=== PATIENT | female | born 1995 | race Caucasian/White ===

== ENCOUNTER → 2017-06-09 | Outpatient (CLI) | payer BC, OTHER ==
[2017-06-09 15:03] LABS: URINE APPEARANCE TURBID (CLEAR); URINE BILIRUBIN NEG (NEG); URINE COLOR DK YELLOW; URINE EPITHELIAL CELL AUTO >30 /lpf (0-5); URINE NITRITE POS (NEG); URINE PH 7.5 (4.5-7.5); URINE SPECIFIC GRAVITY 1.029 (1.000-1.030); UROBILINOGEN NEG (NEG)
[2017-06-09 15:18] LABS: MANUAL MICROSCOPIC REQUIRED? NO; REVIEW REQ? YES; SULFASALICYLIC ACID NEG (NEG)
== END | disposition home or self-care (01) ==
LOC: C.LABSPEC 13:06
PROVIDERS: ATTEND Obstetrics & Gynecology
DX: Z34.01 Encounter for supervision of normal first pregnancy, first trimester (principal)

== ENCOUNTER → 2017-06-15 | Outpatient (CLI) | payer BC, OTHER ==
[2017-06-18 01:31] LABS: CHLAMYDIA TRACH RNA*** NOT DETECTED (NOT DETECTED); GC (NEIS GONORRHOEAE)RNA** NOT DETECTED (NOT DETECTED)
== END | disposition home or self-care (01) ==
LOC: C.LABSPEC 14:23
PROVIDERS: ATTEND Obstetrics & Gynecology
DX: Z34.01 Encounter for supervision of normal first pregnancy, first trimester (principal)

== ENCOUNTER → 2017-06-16 | Outpatient (CLI) | payer BC, OTHER ==
[2017-06-16 16:43] LABS: BASO % 0.3 %; BASO ABS # 0.03 K/uL (0-0.2); COMPLETE YES; EOS % 1.8 %; HEMATOCRIT 36.5 % (37-47); IG% 0.5 %; LYMPH ABS # 2.52 K/uL (1.2-3.4); MEAN CELL VOLUME 87.3 fL (80-100); MEAN CORPUSCULAR HEMOGLOBIN 30.4 pg (25-34); MEAN CORPUSCULAR HGB CONC 34.8 g/dl (32-36); MEAN PLATELET VOLUME 10.2 fL (7.4-10.4); MONO % 8.3 %; NEUT % 68.1 %; PLATELET COUNT 246 K/uL (130-400); RED BLOOD COUNT 4.18 M/uL (4.2-5.4); WHITE BLOOD COUNT 11.98 K/uL (4.8-10.8)
== END | disposition home or self-care (01) ==
LOC: C.LAB1850 15:18
PROVIDERS: ATTEND Obstetrics & Gynecology
DX: Z34.01 Encounter for supervision of normal first pregnancy, first trimester (principal)

== ENCOUNTER → 2017-07-28 | Outpatient (CLI) | payer BC, OTHER ==
[2017-07-28 16:58] LABS: GTGD 50 Grams
== END | disposition home or self-care (01) ==
LOC: C.LAB1850 14:52
PROVIDERS: ATTEND Obstetrics & Gynecology
DX: O23.40 Unspecified infection of urinary tract in pregnancy, unspecified trimester (principal); Z34.02 Encounter for supervision of normal first pregnancy, second trimester

== ENCOUNTER → 2017-10-20 | Outpatient (CLI) | payer BC, OTHER ==
[2017-10-20 18:32] LABS: URINE APPEARANCE CLOUDY (CLEAR); URINE BILIRUBIN NEG (NEG); URINE COLOR YELLOW; URINE EPITHELIAL CELL AUTO >30 /lpf (0-5); URINE NITRITE NEG (NEG); URINE PH 6.5 (4.5-7.5); URINE SPECIFIC GRAVITY 1.023 (1.000-1.030); UROBILINOGEN NEG (NEG)
[2017-10-20 18:34] LABS: MANUAL MICROSCOPIC REQUIRED? NO; REVIEW REQ? NO
[2017-10-20 20:07] LABS: GTGD 50 Grams
== END | disposition home or self-care (01) ==
LOC: C.LAB1850 15:40
PROVIDERS: ATTEND Obstetrics & Gynecology
DX: Z34.03 Encounter for supervision of normal first pregnancy, third trimester (principal)

== ENCOUNTER → 2017-11-03 | Outpatient (CLI) | payer BC, OTHER ==
[2017-11-03 16:24] LABS: HEMATOCRIT 32.3 % (37-47)
== END | disposition home or self-care (01) ==
LOC: C.LAB1850 15:21
PROVIDERS: ATTEND Obstetrics & Gynecology
DX: Z34.03 Encounter for supervision of normal first pregnancy, third trimester (principal)

== ENCOUNTER → 2017-12-15 | Outpatient (CLI) | payer BC | END | disposition home or self-care (01) | LOC: C.LABSPEC 17:55 | PROVIDERS: ATTEND Obstetrics & Gynecology | DX: Z34.03 Encounter for supervision of normal first pregnancy, third trimester (principal) ==

== ENCOUNTER 2018-01-12 03:34 | Inpatient (IN) | payer BC, OTHER ==
[~2018-01-12] VITALS: Ht 162.6 cm; Wt 117.3 kg
[2018-01-19] MEDS ORDERED: LACTATED RINGER'S 1000ML 1,000 ML IV PRN (07:50)
[2018-01-19] MEDS ORDERED: LACTATED RINGER'S 1000ML 500 ML IV PRN ×2 (07:55→12:44)
[2018-01-19] MEDS ORDERED: OXYTOCIN 30 UNITS/500ML NSS IV PRN ×2 (08:00→17:00)
[2018-01-19] MEDS ORDERED: RANI150T85 PO (08:13)
[2018-01-19] MEDS ORDERED: PRENTAB26 PO (08:13)
[2018-01-19 08:14] LABS: HEMATOCRIT 31.2 % (37-47); HEMOGLOBIN 10.7 g/dL (12.0-16.0); MEAN CELL VOLUME 87.2 fL (80-100); MEAN CORPUSCULAR HEMOGLOBIN 29.9 pg (25-34); MEAN CORPUSCULAR HGB CONC 34.3 g/dl (32-36); MEAN PLATELET VOLUME 9.6 fL (7.4-10.4); PLATELET COUNT 199 K/uL (130-400); RED CELL DISTRIBUTION WIDTH CV 13.4 % (11.5-14.5); WHITE BLOOD COUNT 12.48 K/uL (4.8-10.8)
[2018-01-19] MEDS: LACTATED RINGER'S 1000ML 1,000 ML IV SCH ×2 (08:24→12:30)
[2018-01-19] MEDS ORDERED: ACETAMINOPHEN 325 MG TAB PO PRN ×2 (09:00→17:00)
[2018-01-19] MEDS: RANITIDINE HCL 150 MG TAB PO SCH ×2 (09:46→21:09)
[2018-01-19 09:48] VITALS: Ht 162.6 cm; Wt 117.3 kg
[2018-01-19] MEDS ORDERED: BUPIVACAINE 0.25% 30 ML VIAL ONE (11:57)
[2018-01-19] MEDS ORDERED: EpHEDrine SULFATE INJ 50 MG/ML AMP ONE (11:58)
[2018-01-19] MEDS ORDERED: FENTANYL 2MCG/ML ROPIV 1.25MG/ML 100ML BAG EPI ONE (11:58)
[2018-01-19] MEDS ORDERED: FENTANYL CITRATE INJ 50 MCG/1 ML 2 ML VIAL ONE (11:58)
[2018-01-19] MEDS ORDERED: NALOXONE HCL INJ 0.4 MG/1 ML VIAL/CARP IV PRN (12:45)
[2018-01-19] MEDS ORDERED: FENTANYL 2MCG/ML ROPIV 1.25MG/ML 100ML BAG EPI PRN (12:45)
[2018-01-19] MEDS ORDERED: EpHEDrine SULFATE INJ 50 MG/ML AMP IV PRN (12:45)
[2018-01-19] MEDS ORDERED: BENZOCAINE 20% AER SPR 82.5 GM CAN EXT PRN (17:00)
[2018-01-19] MEDS ORDERED: LANOLIN OINT EXT PRN (17:00)
[2018-01-19] MEDS ORDERED: DIPHTHERIA/TETANUS/PERTUSSIS 0.5 ML SYR/VIAL IM. ONE (17:00)
[2018-01-19] MEDS ORDERED: HYDROCORTISONE ACETATE 25 MG SUPP PR PRN (17:00)
[2018-01-19] MEDS ORDERED: OXYCODONE/ACETAMINOPHEN 5-325 TAB PO PRN (17:00)
[2018-01-19] MEDS ORDERED: ACETAMINOPHEN/CODEINE 300/30MG TAB PO PRN ×2 (17:00)
[2018-01-19] MEDS ORDERED: SUPERCREAM 0.870 % 15GM JAR EXT PRN (17:00)
--- NOTE | 2018-01-19 17:18 | DELIVERY SUMMARY ---
DATE OF OPERATION: 01/19/2018 Colby arrived for induction at 41 weeks. Pitocin and epidural and AROM. I got her relatively quickly to fully dilated. Her heart rate did go through a brief period of category 2, but resolved into category 1. She delivered after only pushing through several contractions delivering a baby in right occiput anterior position. Fluid was clear. Mouth and then nares were suctioned. Gentle traction used. No excessive force. Live vigorous female infant. There was a loose body cord x2. Cord clamped and cut. Cord gases obtained. Cord blood obtained. Placenta removed. IV Pitocin started. She had a first degree tear and bilateral labial tears which were repaired with 3-0 Vicryl. Sponge and instrument counts were correct. Estimated blood loss 300 mL. tionat I attest to the content of the Intraoperative Record and any orders documented therein. Any exception s are noted below.
--- NOTE | 2018-01-19 18:19 | Anesthesia Procedure Note ---
Anesthesia Epidural Removal Nt Date & Time Jan 19, 2018 at 18:19 Vital Signs Pain Intensity: 5.0 Notes Mental Status: alert / awake / arousable, participated in evaluation Nausea / Vomiting: adequately controlled Pain: adequately controlled Airway Patency, RR, SpO2: stable & adequate BP & HR: stable & adequate Hydration State: stable & adequate Neuraxial Anesthesia: was administered, sensory block is resolving Anesthetic Complications: no major complications apparent, pt satisfied with anesthetic care Epidural: removed without complications, with tip intact
[2018-01-19] MEDS: IBUPROFEN 600 MG TAB PO PRN (20:10)
[2018-01-19 20:15] VITALS: BP 100/67; PULSE 106; TEMP 37.3; O2SAT 99
[2018-01-19] MEDS: DOCUSATE SODIUM 100 MG CAP PO SCH (21:09)
[2018-01-20] MEDS: IBUPROFEN 600 MG TAB PO PRN ×6 (00:08→23:49)
[2018-01-20 03:45] VITALS: BP 80/54; PULSE 75; TEMP 36.9; O2SAT 100
[2018-01-20] MEDS: RANITIDINE HCL 150 MG TAB PO SCH ×3 (03:59→19:57)
--- NOTE | 2018-01-20 05:52 | Progress Note ---
Subjective Jan 20, 2018. Subjective conversation w/ patient, physical exam, lab review Ambulation: ambulating normally Voiding: no voiding problems Diet Tolerance: Regular Diet Lochia: Small Objective Vital Signs Date Time Temp Pulse Resp B/P (MAP) Pulse Ox O2 Delivery O2 Flow Rate FiO2 01/20/18 03:45 36.9 75 18 80/54 (63) 100 Room Air 01/19/18 20:15 37.3 106 20 100/67 (78) 99 Room Air 01/19/18 20:15 99 Room Air Physical Exam General Appearance: WELL-APPEARING Abdomen: non tender Extremities: no calf tenderness Laboratory Results Last 24 Hours Test 01/19/18 08:05 01/20/18 04:44 White Blood Count 12.48 K/uL Red Blood Count 3.58 M/uL Hemoglobin 10.7 g/dL Hematocrit 31.2 % Mean Corpuscular Volume 87.2 fL Mean Corpuscular Hemoglobin 29.9 pg Mean Corpuscular Hemoglobin Concent 34.3 g/dl RDW Standard Deviation 43.0 fL RDW Coefficient of Variation 13.4 % Platelet Count 199 K/uL Mean Platelet Volume 9.6 fL Assessment and Plan Problem List Medical Problems: (1) Abscess packing removal Status: Acute (2) Pilonidal cyst with abscess Status: Acute Post- Day#: 1 Continue Routine Care: day 1 she is doing well no concerns plan on continuing current care
[2018-01-20 06:10] LABS: HEMATOCRIT 24.9 % (37-47); HEMOGLOBIN 8.4 g/dL (12.0-16.0)
[2018-01-20 07:45] VITALS: BP 102/69; PULSE 81; TEMP 36.8; O2SAT 99
[2018-01-20] MEDS: DOCUSATE SODIUM 100 MG CAP PO SCH ×2 (08:43→19:57)
[2018-01-20] MEDS: PRENATAL VITAMIN TAB PO SCH (08:44)
[2018-01-20 11:20] VITALS: BP 103/69; PULSE 72; TEMP 36.9; O2SAT 98
[2018-01-20 15:34] VITALS: BP 110/74; PULSE 90; TEMP 36.8; O2SAT 99
--- NOTE | 2018-01-20 16:11 | Discharge Instructions ---
Discharge Instructions Date of Service Jan 20, 2018. Admission Reason for Admission: Induction Discharge Discharge Diagnosis / Problem: s/p Discharge Goals Goal(s): Routine recovery after delivery Medications Continue Dispensed Medications: supercream, dermaplast, tucks, lansinoh Activity Recommendations Activity Limitations: per Instructions/Follow-up section . Instructions / Follow-Up Instructions / Follow-Up ACTIVITY RECOMMENDATIONS: * Gradual return to full activity over the next 2-3 weeks. * No lifting - nothing heavier than baby over the next 2-3 weeks. * Do not engage in vigorous exercise, sexual activity or sports until cleared by your physician. * Do not drive or operate any motorized equipment until cleared by your physician. * You may shower/bathe daily. MEDICATIONS: For discomfort or pain, you may use Acetaminophen (Tylenol), Ibuprofen (Advil), or Naproxen (Aleve) following the package directions. For constipation you may use Colace following the package directions. BREAST CARE: If you are not breast feeding: * Wear a supportive bra 24 hours a day for one to two weeks. * Avoid stimulating your breasts and nipples as much as possible during the first few weeks after delivery. * When taking a shower, have the warm water hit your back, not breasts. * When your breasts feel full, apply ice packs. Usually three to four times a day helps ease the discomfort. * Take a mild pain medication (Tylenol / Motrin) when you are uncomfortable. If breast feeding: * Use breast milk to lubricate nipples. Lansinoh cream may be used for sore nipples. You do not need to remove cream prior to breast feeding. If using a different brand of cream, check the label for directions regarding removal of cream prior to nursing. * Wear a supportive bra. * If having problems with breasts or breast feeding, call a design consultant or your health care provider. EPISIOTOMY CARE: After delivery, if you have an episiotomy (stitches), the following steps will ease discomfort and aid healing. * For the first 24 hours after delivery, place ice packs next to your episiotomy to help reduce swelling. * After the first 24 hour-period, sitz baths, either portable or in the tub, are suggested. A shower with a shower arm sprayed over the episiotomy may be comforting. * Bria care should be done after each voiding and bowel movement. Squirt warm water from a plastic bottle over the perineum (region of the body between the anus and urinary opening) and pat dry. * Use Dermoplast to ease discomfort. Shake container. [place] directly over the episiotomy. Place a Tucks on a clean sanitary pad next to your episiotomy. SPECIAL CARE INSTRUCTIONS: When you are discharged from the hospital, it is important for you to follow the instructions listed below: * During the first week at home, you should be able to care for yourself and your baby. In addition, the usual light household activities are encouraged. * Limit your activities to the way you feel. Do not try to clean the house or move furniture. Be sensible. * If you actively engage in sports and have done so up until the time of your delivery, you may resume these activities as soon as you feel able. This may take up to one month or even longer. Use good judgment. * Continue to take your vitamins for at least six weeks after the of your baby. * Your diet need not be limited unless you were on a special diet before your delivery. Breast-feeding mothers need around 2500 calories per day and at least 64-80 ounces of fluid per day (8 to 10 glasses). * You should eat foods from the four major food groups. Crash diets or fad diets are to be avoided. Eating lean meats, fresh fruits and vegetables, low-fat dairy products, high fiber foods and a regular exercise program, will help you get back to your pre- weight without putting your health at risk. * Constipation is sometimes a problem after delivery. Take a mild laxative as needed. If breast feeding, Milk of Magnesia is acceptable to use. You may use a suppository or Fleets enema if no episiotomy. * A daily shower or tub bath is suggested. Be sure to thoroughly and gently dry the perineum. * A bloody vaginal discharge will usually continue until around four weeks post . A small amount of bleeding may continue for as long as six weeks. Vaginal discharge changes from the bright red bleeding after delivery to pink then brownish and finally yellowish-pink before becoming white and disappearing. * Bleeding may increase with activity. Your first period may come in 4-8 weeks. If you are breast feeding, your period may be delayed even longer. * [place] (sex) can begin whenever both you and your partner feel comfortable and do not have any form of genital infection. It is recommended that you wait at least six weeks for internal and external healing to occur. If you have questions, please talk to your health care practitioner. A condom should be used to prevent infection and . * Foreplay, gentle intercourse and lubrication is very important the first several times to prevent pain. A water-based lubricant such as K-Y jelly or Astroglide may be used. * If you have RH negative blood and your baby is RH positive, you will receive RHOGAM by injection prior to discharge. The nurse will give you a card to keep with you that has the date and place that you received RHOGAM after delivery. * During your care, you had a Rubella screen done to check for the presence of rubella antibodies in your blood. If your test was negative, you will receive a Rubella vaccine prior to discharge. This vaccine may cause a fever, soreness at the injection site and flu-like symptoms. If these symptoms persist, notify your health care practitioner. is not advised for one month after a Rubella vaccine. * Verbalizes understanding of car seat law as reviewed with patient nursing. * Car Seat hand-out given and reviewed with patient by nursing. * Shaken baby information reviewed with patient by nursing. Call you doctor if: * Heavy bleeding (saturating several pads an hour) or passing clots the size of your fist. * A fever >101 degrees F (38.3 degrees C) on two occasions four hours apart and /or chills. * Unusual pain in the pelvic or vaginal areas. * "Baby Blues" lasting longer than two weeks. If you have any questions or concerns, call your health care practitioner at . FOLLOW UP VISIT: * Please call the office at to schedule a 6 week examination. It is important you keep this appointment. It is important for you to make arrangements for either yearly or twice yearly check-ups thereafter. Current Hospital Diet Patient's current hospital diet: Regular OB Diet Discharge Diet Recommended Diet: Regular OB Diet Pending Studies Studies pending at discharge: no Medical Emergencies . Who to Call and When: Medical Emergencies: If at any time you feel your situation is an emergency, please call [phone] immediately. . Non-Emergent Contact Non-Emergency issues call your: Circulating Process Inspector . . "Provider Documentation" section prepared by Nieves Shearer. .
[2018-01-20] MEDS ORDERED: BISACODYL 5 MG TABEC PO SCH (20:00)
[2018-01-20 23:35] VITALS: BP 103/69; PULSE 96; TEMP 36.5; O2SAT 98
[2018-01-21] MEDS: IBUPROFEN 600 MG TAB PO PRN (06:26)
[2018-01-21] MEDS ORDERED: BISACODYL 10 MG SUPP PR PRN (07:00)
[2018-01-21 07:40] VITALS: BP 104/70; PULSE 74; TEMP 36.7; O2SAT 99
--- NOTE | 2018-01-21 07:59 | Progress Note ---
Subjective Jan 21, 2018. Subjective conversation w/ patient, physical exam Ambulation: ambulating normally Voiding: no voiding problems Passing Gas: Yes Diet Tolerance: Regular Diet Lochia: Small Feeding Type: Bottle Feeding Pain: No pain reported Comment: Pt. seen and assessed at bedside; no acute events overnight Review of Systems Constitutional: No fever, No chills Respiratory: No cough, No shortness of breath Cardiac: + edema, No chest pain Breast: No problem reported Abdomen: No pain, No nausea, No vomiting Female : No dysuria No headaches or calf tenderness reported Objective Vital Signs Date Time Temp Pulse Resp B/P (MAP) Pulse Ox O2 Delivery O2 Flow Rate FiO2 01/20/18 23:35 98 Room Air 01/20/18 23:35 36.5 96 18 103/69 (80) 98 Room Air 01/20/18 15:34 99 Room Air 01/20/18 15:34 36.8 90 18 110/74 (86) 99 Room Air 01/20/18 11:20 36.9 72 20 103/69 (80) 98 Room Air Physical Exam General Appearance: WELL-APPEARING, WD/WN, NO APPARENT DISTRESS Respiratory/Chest: chest non-tender, lungs clear, normal breath sounds Cardiovascular: regular rate, rhythm, no murmur Abdomen: normal bowel sounds, non tender, soft Fundus: Firm, Non-Tender, Relation to Umbilicus (4 cm below) Extremities: normal range of motion, non-tender, normal inspection, no pedal edema, no calf tenderness Laboratory Results Last 24 Hours Test 01/21/18 04:44 Medications Current Inpatient Medications Medications (Trade) Dose Ordered Sig/[place] Route Start Time Stop Time Status Last Admin Dose Admin Lactated Ringer's 1,000 ml @ 999 mls/hr Q1H1M PRN IV 01/19/18 07:50 02/18/18 07:49 Lactated Ringer's 500 ml @ 999 mls/hr Q31M PRN IV 01/19/18 07:55 02/18/18 07:54 Ranitidine HCl (zANTac TAB) 150 mg BID PO 01/19/18 20:00 02/18/18 19:59 01/20/18 19:57 150 MG Oxytocin (Pitocin IV) 30 units UD PRN IV 01/19/18 17:00 02/18/18 16:59 Benzocaine (Dermoplast Aero Spr) 1 appln PRN PRN EXT 01/19/18 17:00 02/18/18 16:59 01/19/18 20:10 1 APPLN Cocaine HCl (Supercream 0.870% Cr) BID PRN EXT 01/19/18 17:00 02/02/18 16:59 Hydrocortisone Acetate (Anusol Hc Supp) 25 mg BID PRN AR 01/19/18 17:00 02/18/18 16:59 Lanolin (Lanolin Oint) PRN PRN EXT 01/19/18 17:00 02/18/18 16:59 Prenat Multivit/ [place]/Iron/Folic Ac ( Vitamin Tab) 1 tab DAILY PO 01/20/18 08:00 02/19/18 07:59 01/20/18 08:44 1 TAB Ibuprofen (Motrin Tab) 600 mg Q4H PRN PO 01/19/18 17:00 02/18/18 16:59 01/21/18 06:26 600 MG Acetaminophen (Tylenol Tab) 650 mg Q6H PRN PO 01/19/18 17:00 02/18/18 16:59 Acetaminophen/ Codeine Phosphate (Tylenol w/ Codeine #3 Tab) 1 tab Q4H PRN PO 01/19/18 17:00 02/18/18 16:59 Acetaminophen/ Codeine Phosphate (Tylenol w/ Codeine #3 Tab) 2 tab Q4H PRN PO 01/19/18 17:00 02/18/18 16:59 Bisacodyl (Dulcolax Supp) 10 mg DAILY PRN AR 01/21/18 07:00 Docusate Sodium (coLACE CAP) 100 mg BID PO 01/19/18 20:00 02/18/18 19:59 01/20/18 19:57 100 MG Assessment and Plan Problem List Medical Problems: (1) Abscess packing removal Status: Acute (2) Pilonidal cyst with abscess Status: Acute Post- Day#: 2 Continue Routine Care: Resident Physician Supervision Note: I was present with Dr. Shearer during the history and exam. I discussed the case with the resident and agree with the findings and plan as documented in the note. Any exceptions or clarifications are listed here: [None] Documented By: Michelle Chaputa Ibis 22yo F PPD 2 s/p induction and NVD Pt doing well clinically Encourage ambulation Pain control with rx prn Discussed breast care while bottle feeding. Discharge instructions reviewed, follow up in office in 6 weeks Resident Tracking Resident Involvement: Resident Care Provided Care Provided: OB Delivery
[2018-01-21] MEDS: DOCUSATE SODIUM 100 MG CAP PO SCH (08:34)
[2018-01-21] MEDS: RANITIDINE HCL 150 MG TAB PO SCH (08:34)
[2018-01-21] MEDS: PRENATAL VITAMIN TAB PO SCH (08:34)
[2018-01-21 09:27] LABS: HEMATOCRIT 25.2 % (37-47); HEMOGLOBIN 8.4 g/dL (12.0-16.0); MEAN CELL VOLUME 89.4 fL (80-100); MEAN CORPUSCULAR HEMOGLOBIN 29.8 pg (25-34); MEAN CORPUSCULAR HGB CONC 33.3 g/dl (32-36); MEAN PLATELET VOLUME 10.2 fL (7.4-10.4); PLATELET COUNT 216 K/uL (130-400); RED CELL DISTRIBUTION WIDTH CV 13.9 % (11.5-14.5); RED CELL DISTRIBUTION WIDTH SD 44.8 fL (36.4-46.3); WHITE BLOOD COUNT 14.44 K/uL (4.8-10.8)
[2018-01-21 10:45] VITALS: BP_DIAS 70; PULSE 74; TEMP 36.7
== END 2018-01-21 11:10 | disposition home or self-care (01) | DRG 775 ==
LOC: C.LD 01-19 07:25 → C.OBG 01-19 20:05
PROVIDERS: ADMIT Obstetrics & Gynecology; ATTEND Obstetrics & Gynecology
PROC: 10E0XZZ Delivery of Products of Conception, External Approach (ICD-10-PCS; principal; 2018-01-19)
PROC: 0HQ9XZZ Repair Perineum Skin, External Approach (ICD-10-PCS; principal; 2018-01-19)
PROC: 3E053VJ Introduction of Other Hormone into Peripheral Artery, Percutaneous Approach (ICD-10-PCS; 2018-01-19)
DX: O48.0 Post-term pregnancy (principal); O70.0 First degree perineal laceration during delivery; O69.81X0 Labor and delivery complicated by cord around neck, without compression, not applicable or unspecified; Z3A.41 41 weeks gestation of pregnancy; Z37.0 Single live birth

== ENCOUNTER → 2018-03-02 | Outpatient (CLI) | payer BC, OTHER ==
[~2018-03-02] MED LIST: PRENTAB26 PO; RANI150T85 PO
== END | disposition home or self-care (01) ==
LOC: C.PAPS 14:18
PROVIDERS: ATTEND Obstetrics & Gynecology
DX: Z39.2 Encounter for routine postpartum follow-up (principal)

== ENCOUNTER 2019-04-12 22:11 | Observation (INO) ==
--- OUTSIDE RECORDS SUMMARY | 2019-04-12 22:15 | External Medical Summary | Continuity of Care Document ---
:1995 Author Name Tavo Ross, Provider Address Unavailable Unavailable , Care Team Providers Name Role Phone Padmaja Clement M.D. 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) Screening, lipid (V77.91) (Z13.220) Chronic daily headache (784.0) (R51) Dyspepsia (536.8) (R10.13) History of Idiopathic intracranial hypertension (348.2) (G93 .2) Status: Resolved IUD check up (V25.42) (Z30.431) Encounter for IUD insertion (V25.11) (Z30.430) 6 weeks follow-up (V24.2) (Z39.2) Allergies and Adverse Reactions No Known Drug Allergies (Allergy) Medications Mirena (52 MG) 20 MCG/24HR Intrauterine Intrauterine Device Refills: 0 Zantac 75 TABS Refills: 0 Procedures History of Tonsillectomy Status: Complet ed History of Counseling for initiation of control method Status: Completed Immunizations Hepatitis B On: 1996 Hepatitis B On: 1996 DTaP On: 1996 HIB On: 1996 Polio On: 1996 DTaP On: 1996 HIB On: 1996 Polio On: 1996 Hepatitis B On: 30-Jan-1997 DTaP On: 30-Jan-1997 HIB On: 30-Jan-1997 Polio On: 30-Jan-1997 DTaP On: 16-Aug-1997 HIB On: 16-Aug-1997 Varicella On: 16-Aug-1997 MMR On: 16-Aug-1997 DTaP On: 21-Feb-1998 DTaP On: 05-Feb-2002 Polio On: 05-Feb-2002 MMR On: 05-Feb-2002 Varicella On: 12-Apr-2007 Meningo (Menactra) On: 01-May-2009 Tdap (Adacel) On: 01-May-2009 Hepatitis A On: 19-Oct-2011 12:25 Lot #: [id number], [employer] HPV (Gardasil) On: 19-Oct-2011 12:25 Lot #: [id number], [employer] Influenza On: 19-Oct-2011 12:26 Lot #: [id number], [employer] Hepatitis A On: 26-Jul-2012 12:25 Lot #: [id number], [employer] HPV (Gardasil) On: 26-Jul-2012 12:26 Lot #: [id number], [employer] Influenza On: 26-Jul-2012 12:40 Lot #: [id number], [employer] HPV (Gardasil) On: 24-May-2014 14:47 Lot #: [id number], [employer] Meningo (Menactra) On: 24-May-2014 14:49 Lot #: [id number], [employer] Family History Brother Family history of Diabetes Mellitus (V18.0) Status: Active Family history of Depression Status: Active Grandmother Family history of Breast Cancer (V16.3) Status: Active Grandfather Family history of Prostate Cancer (V16.42) Status: Active Grandfather Family history of Prostate cancer (185) (C61) Status: Active Social History - Smoking Status Current every day smoker Interventions Discussion/SummaryIUD string visible and normal.Discussed bleeding.Discussed IUD in depth. Approximately 15 Minutes was spent with the patient. Greater than 50% of time with patient was spent on counseling and coordinating care. Disc above Plan of Treatment Planned Observations Planned Goals not documented Results No Known Results Results not documented Encounters Appointment; Padmaja Clement M.D. 31-Mar-2018 8:00 Encounter Diagnosis: Problem not documented Appointment; Padmaja Clement M.D. 02-Mar-2018 9:40 Encounter Diagnosis: Problem not documented Appointment; OBGYN SC1, Ultrasound 18-Jan-2018 11:10 Encounter Diagnosis: Problem not documented Appointment; Padmaja Clement M.D. 18-Jan-2018 11:00 Encounter Diagnosis: Problem not documented Appointment; OB SC1, Nonstress Test 18-Jan-2018 10:30 Encounter Diagnosis: Problem not documented Appointment; Skip Stroud M.D. 12-Jan-2018 15:30 Encounter Diagnosis: Problem not documented Appointment; OB SC1, Nonstress Test 12-Jan-2018 15:00 Encounter Diagnosis: Problem not documented Appointment; Gladys Ortiz M.D. 05-Jan-2018 15:10 Encounter Diagnosis: Problem not documented Appointment; Michelle Schneider M.D. 29-Dec-2017 14:10 Encounter Diagnosis: Problem not documented Appointment; Ciarra Olmedo M.D. 22-Dec-2017 15:00 Encounter Diagnosis: Problem not documented Appointment; Bria Crisostomo DO 15-Dec-2017 15:10 Encounter Diagnosis: Problem not documented Appointment; Rebeca Bearden M.D. 01-Dec-2017 15:10 Encounter Diagnosis: Problem not documented Appointment; Gladys Ortiz M.D. 17-Nov-2017 11:40 Encounter Diagnosis: Problem not documented Appointment; Rebeca Bearden M.D. 03-Nov-2017 15:20 Encounter Diagnosis: Problem not documented Appointment; Michelle Schneider M.D. 20-Oct-2017 15:10 Encounter Diagnosis: Problem not documented Appointment; Ciarra Olmedo M.D. 22-Sep-2017 14:50 Encounter Diagnosis: Problem not documented Appointment; OBGYN SC1, Ultrasound 22-Sep-2017 14:00 Encounter Diagnosis: Problem not documented Appointment; Gladys Ortiz M.D. 25-Aug-2017 15:20 Encounter Diagnosis: Problem not documented Appointment; OBGYN SC2, Ultrasound 25-Aug-2017 14:00 Encounter Diagnosis: Problem not documented Appointment; Gladys Ortiz M.D. 28-Jul-2017 14:20 Encounter Diagnosis: Problem not documented Appointment; Rebeca Bearden M.D. 29-Jun-2017 15:00 Encounter Diagnosis: Problem not documented Appointment; OB SC1, Procedure Rm 15-Jun-2017 12:00 Encounter Diagnosis: Problem not documented Appointment; Gladys Ortiz M.D. 15-Jun-2017 12:00 Encounter Diagnosis: Problem not documented Appointment; OB SC1, Nursing Station 09-Jun-2017 9:45 Encounter Diagnosis: Problem not documented Appointment; Wilbert Fairchild CRNP 06-Jun-2017 10:40 Encounter Diagnosis: Problem not documented Appointment; Padmaja Clement M.D. 27-Apr-2018 8:30 Encounter Diagnosis: Problem not documented
[2019-04-12] MEDS ORDERED: ONDANSETRON INJ 2 MG/ML 2 ML VIAL IV STA (22:38)
[2019-04-12] MEDS ORDERED: KETOROLAC TROMETHAMINE 15 MG/ML VIAL IV STA (22:38)
[2019-04-12] MEDS ORDERED: SODIUM CHLORIDE 0.9% 1000ML 1,000 ML IV SCH (22:45)
--- NOTE | 2019-04-12 22:49 | XRay Report ---
XR chest 1V portable CLINICAL HISTORY: RUQ pain COMPARISON STUDY: No previous studies for comparison. FINDINGS: The cardiac and mediastinal contours are normal. There is no evidence of focal pulmonary co nsolidation. There is no evidence of failure. No pleural effusions are visualized.[ No free air is vi sualized. IMPRESSION: No active disease in the chest. Electronically signed by: Arthur Beauchamp M.D. 04/12/2019 10:48 PM
[2019-04-12 23:16] LABS: Basophils # (auto) 0.04 K/uL (0-0.2); Basophils % (auto) 0.3 %; Eosinophils % (auto) 2.6 %; Hematocrit (blood only) 37.7 % (37-47); Immature Granulocytes # (auto) 0.04 K/uL (0.00-0.02); Immature Granulocytes % (auto) 0.3 %; Lymphocytes # (auto) 2.65 K/uL (1.2-3.4); Lymphocytes % (auto) 23.2 %; Mean Corpuscular Hgb Conc 34.5 g/dL (32-36); Mean Corpuscular Volume 87.3 fL (80-100); Mean Platelet Volume 9.9 fL (7.4-10.4); Monocytes # (auto) 1.05 K/uL (0.11-0.59); Monocytes % (auto) 9.2 %; Neutrophils # (auto) 7.35 K/uL (1.4-6.5); Neutrophils % (auto) 64.4 %; Platelet Count 253 K/uL (130-400); RDW Coefficient of Variation 12.4 % (11.5-14.5); Red Blood Count 4.32 M/uL (4.2-5.4); White Blood Count 11.43 K/uL (4.8-10.8)
[2019-04-12 23:37] LABS: Albumin Level 3.5 gm/dl (3.4-5.0); BUN Creatinine Ratio 19.1 (10-20); Bilirubin,Total 0.2 mg/dl (0.2-1); Calcium 9.2 mg/dl (8.5-10.1); Creatinine Clr Calc Pharmacy 159.5 ml/min; Est GFR (African American) 144.6; Est GFR (Non-African American) 124.8; Globulin 3.5 gm/dl (2.5-4.0); Potassium 3.8 mmol/L (3.5-5.1)
[2019-04-12 23:41] LABS: Pregnancy Test, Serum Negative (Negative)
[2019-04-13 00:13] LABS: Appearance Urine Clear (Clear); Bilirubin Urine Negative (Negative); Color Urine Yellow; Glucose Urine UA Negative (Negative); Ketones Urine Negative (Negative); Leukocyte Esterase Urine Negative (Negative); Nitrite Urine Negative (Negative); Protein Urine Negative (Negative); Specific Gravity Urine 1.019 (1.000-1.030); Urobilinogen Urine Negative (Negative); pH Urine 5.5 (4.5-7.5)
[2019-04-13] MEDS ORDERED: cefOXitin 2,000 MG/60 ML BAG IV STA (00:13)
--- NOTE | 2019-04-13 00:30 | Emergency Department Note ---
Entered by Harley Lopez acting as a scribe for Santino Vizcarra DO History of Present Illness General Chief complaint: Abdominal Pain Stated complaint: RT SIDE PAIN Source: patient History of Present Illness Provider complaint: Flank pain Onset (ago): day(s) (Last couple days) Location: back (Right flank) Radiation: non-radiation Pain Consistency: + constant and + intermittent Maximum Pain Intensity: 7 Current Pain Intensity: 7 Quality: + sharp Relieved By: + none Exacerbated By: + movement and + other (Deep breathing) Associated symptoms: + nausea/vomiting (No vomiting) and + other (Negative urinary symptoms; Negative vaginal bleeding; ) The patient is a 23 year old female who presents to the Emergency Room with complaints of intermittent right flank pain that started a couple of days ago, but became sharp and constant tonight, about an hour ago. The patient rates the pain as a 7/10 and notes it becomes worse with deep breathes and movement. The pain does not radiate anywhere, but the patient did wake up this morning with some nausea. The patient denies any urinary symptoms or vaginal bleeding as well as any history of kidney stones, recent surgeries, or history of gallbladder issues. The patient's LNMP was 2 weeks ago. She is not on any daily medications and she uses both alcohol and tobacco. Home Medications Home Medications Medication Instructions Recorded Confirmed Type No Known Home Medications 04/12/19 04/12/19 History Allergies Allergy/AdvReac Type Severity Reaction Status Date / Time No Known Allergies AdvReac Unknown Unverified 04/12/19 22:34 Past Med/Surg History Medical History Myalgia (Acute) Post-dates Viral syndrome (Acute) Family History Other No pertinent family history in first degree relatives Social History Preferred Language: Vincentian Feels Safe at Home: Yes Smoking Status: Current every day smoker Review of Systems See HPI for pertinent positives & negatives. and A total of 10 systems reviewed and were otherwise negative Physical Exam Vital Signs Vital Signs - 24 hr 04/12/19 22:16 04/12/19 23:02 04/13/19 00:06 Temperature 36.7 C Temperature Source Oral Sepsis Recent Fever Within 48 Hours No Sepsis New/Unexplained Change in Mental Status No Sepsis Action Taken by Nursing No Action Required Pulse Rate 89 Pulse Rate [Right Finger] 75 Pulse Rhythm [Right Finger] Regular Pulse Strength [Right Finger] Normal Respiratory Rate 16 16 Respiratory Effort / Characteristics Non-Labored Spontaneous Non-Labored Respiratory Depth Normal Normal Respiratory Pattern Regular Blood Pressure 111/69 Blood Pressure [Right Arm] 117/65 Blood Pressure Mean 83 Blood Pressure Mean [Right Arm] 82 Blood Pressure Position [Right Arm] Sitting Pulse Oximetry 100 99 97 Oxygen Delivery Method Room Air Room Air Room Air GENERAL: Patient is awake, alert, and in no acute distress.Patient is resting comfortably and showing no signs of anxiety EYES: The conjunctivae are clear. The pupils are round and reactive. EARS, NOSE, MOUTH AND THROAT: The nose is without any evidence of any deformity. Mucous membranes are moist.Tongue is midline NECK: The neck is nontender and supple. RESPIRATORY: Normal respiratory effort is noted. There is no evidence of wheezing rhonchi or rales to auscultation. CARDIOVASCULAR: Regular rate and rhythm noted. There no murmurs rubs or gallops normal S1 normal S2 GASTROINTESTINAL: The abdomen is mildly distended but soft. Bowel sounds are present in all quadrants. RUQ tenderness to palpation but no guarding or rigidity. BACK: No midline tenderness or or step-off noted range of motion in flexion extension as well as rotation no signs of muscle spasm noted. Right CVA tendern ess to percussion. ROM appears intact. MUSCULOSKELETAL/EXTREMITIES: There is no evidence of gross deformity. Full range of motion is noted in the hips and shoulders. SKIN: There is no obvious evidence of any rash. There are no petechiae, pallor or cyanosis noted. NEUROLOGIC: Patient is awake alert and oriented x3. Strength is symmetric. Patellar reflexes are 2+ bilaterally. Course 2237: The patient was evaluated in room A12B, and a complete history and physical examination were performed. 0005: I updated the patient on results obtained thus far. 0020: I spoke to Dr. Hoyt - General Surgery who recommends admission and treatment with antibiotics. He will be accepting the patient. 0025: I updated the patient and her family on the treatment plan and they both agreed. Consultations Consultation #1: I spoke to Dr. Lai Linn Surgery who recommends admi ssion and treatment with antibiotics. He will be accepting the patient. Time: 00:20 Administered Medications Discontinued Medications Sodium Chloride (Nss 1000ml) 1,000 mls @ 999 mls/hr IV .Q1H1M MAU Stop: 04/12/19 23:45 Last Infusion: 04/13/19 00:55 Dose: 0 mls/hr Documented by: [id number] Admin: 04/12/19 23:02 Dose: 999 mls/hr Documented by: [id number] Cefoxitin Sodium (Mefoxin) 2,000 mg in 60 mls @ 100 mls/hr IV NOW STA Stop: 04/13/19 00:48 Last Infusion: 04/13/19 00:54 Dose: 0 mls/hr Documented by: [id number] Admin: 04/13/19 00:22 Dose: 100 mls/hr Documented by: [id number] Ketorolac Tromethamine (Toradol) 15 mg IV NOW STA Stop: 04/12/19 22:39 Last Admin: 04/12/19 23:02 Dose: 15 mg Documented by: [id number] Ondansetron HCl (Zofran) 4 mg IV NOW STA Stop: 04/12/19 22:39 Last Admin: 04/12/19 23:01 Dose: 4 mg Documented by: [id number] Medical Decision Making Differential Diagnosis Differential: Renal Colic, Pyelonephritis, Hydronephrosis, Appendicitis, Diverticulitis, Retroperitoneal Bleed/Infection, Aortic Pathology, MSK, Neurologic Pathology, amongst other pathologies entertained. Medical Records Attestation: I reviewed the patient's medical records. Home Medications Current Medication List: was personally reviewed by me Laboratory Data Attestation: I reviewed the patient's lab results. Result diagrams: 04/12/19 22:42 04/12/19 22:42 Lab Results 04/12/19 04/12/19 04/12/19 Range/Units 22:42 22:42 22:42 WBC 11.43 H (4.8-10.8) K/uL RBC 4.32 (4.2-5.4) M/uL Hgb 13.0 (12.0-16.0) g/dL Hct 37.7 (37-47) % MCV 87.3 (80-100) fL MCH 30.1 (25-34) pg MCHC 34.5 (32-36) g/dL RDW Std Deviation 40.0 (36.4-46.3) fL RDW Coeff of Zahra 12.4 (11.5-14.5) % Plt Count 253 (130-400) K/uL MPV 9.9 (7.4-10.4) fL Immature Gran % (Auto) 0.3 % Neut % (Auto) 64.4 % Lymph % (Auto) 23.2 % [place] % (Auto) 9.2 % Eos % (Auto) 2.6 % Baso % (Auto) 0.3 % Immature Gran # (Auto) 0.04 H (0.00-0.02) K/uL Neut # (Auto) 7.35 H (1.4-6.5) K/uL Lymph # (Auto) 2.65 (1.2-3.4) K/uL [place] # (Auto) 1.05 H (0.11-0.59) K/uL Eos # (Auto) 0.30 (0-0.5) K/uL Baso # (Auto) 0.04 (0-0.2) K/uL Sodium 140 (136-145) mmol/L Potassium 3.8 (3.5-5.1) mmol/L Chloride 108 H (98-107) mmol/L Carbon Dioxide 23 (21-32) mmol/L Anion Gap 9.0 (3-11) BUN 13 (7-18) mg/dl Creatinine 0.67 (0.6-1.2) mg/dl Est Cr Clr Drug Dosing 159.5 ml/min Est GFR ( Amer) 144.6 Est GFR (Non-Af Amer) 124.8 BUN/Creatinine Ratio 19.1 (10-20) Glucose 90 (70-99) mg/dl Calcium 9.2 (8.5-10.1) mg/dl Total Bilirubin 0.2 (0.2-1) mg/dl AST 15 (15-37) U/L ALT 20 (12-78) U/L Alkaline Phosphatase 83 (45-117) U/L Total Protein 7.0 (6.4-8.2) gm/dl Albumin 3.5 (3.4-5.0) gm/dl Globulin 3.5 (2.5-4.0) gm/dl Albumin/Globulin Ratio 1.0 (0.9-2) Lipase 68 L (73-393) U/L HCG, Qual Negative (Negative) Specimen Hemolysis Urine Color Urine Appearance (Clear) Urine pH (4.5-7.5) Ur Specific [place] (1.000-1.030) Urine Protein (Negative) Urine Glucose (UA) (Negative) Urine Ketones (Negative) Urine Blood (Negative) Urine Nitrite (Negative) Urine Bilirubin (Negative) Urine Urobilinogen (Negative) Ur Leukocyte Esterase (Negative) 04/13/19 Range/Units 00:04 WBC (4.8-10.8) K/uL RBC (4.2-5.4) M/uL Hgb (12.0-16.0) g/dL Hct (37-47) % MCV (80-100) fL MCH (25-34) pg MCHC (32-36) g/dL RDW Std Deviation (36.4-46.3) fL RDW Coeff of Zahra (11.5-14.5) % Plt Count (130-400) K/uL MPV (7.4-10.4) fL Immature Gran % (Auto) % Neut % (Auto) % Lymph % (Auto) % [place] % (Auto) % Eos % (Auto) % Baso % (Auto) % Immature Gran # (Auto) (0.00-0.02) K/uL Neut # (Auto) (1.4-6.5) K/uL Lymph # (Auto) (1.2-3.4) K/uL [place] # (Auto) (0.11-0.59) K/uL Eos # (Auto) (0-0.5) K/uL Baso # (Auto) (0-0.2) K/uL Sodium (136-145) mmol/L Potassium (3.5-5.1) mmol/L Chloride (98-107) mmol/L Carbon Dioxide (21-32) mmol/L Anion Gap (3-11) BUN (7-18) mg/dl Creatinine (0.6-1.2) mg/dl Est Cr Clr Drug Dosing ml/min Est GFR ( Amer) Est GFR (Non-Af Amer) BUN/Creatinine Ratio (10-20) Glucose (70-99) mg/dl Calcium (8.5-10.1) mg/dl Total Bilirubin (0.2-1) mg/dl AST (15-37) U/L ALT (12-78) U/L Alkaline Phosphatase (45-117) U/L Total Protein (6.4-8.2) gm/dl Albumin (3.4-5.0) gm/dl Globulin (2.5-4.0) gm/dl Albumin/Globulin Ratio (0.9-2) Lipase (73-393) U/L HCG, Qual (Negative) Specimen Hemolysis Urine Color Yellow Urine Appearance Clear (Clear) Urine pH 5.5 (4.5-7.5) Ur Specific [place] 1.019 (1.000-1.030) Urine Protein Negative (Negative) Urine Glucose (UA) Negative (Negative) Urine Ketones Negative (Negative) Urine Blood Negative (Negative) Urine Nitrite Negative (Negative) Urine Bilirubin Negative (Negative) Urine Urobilinogen Negative (Negative) Ur Leukocyte Esterase Negative (Negative) Imaging Data Radiologist's Impression: Radiology results as stated below per my review and the radiologist's interpretation: XR chest 1V portable CLINICAL HISTORY: RUQ pain COMPARISON STUDY: No previous studies for comparison. FINDINGS: The cardiac and mediastinal contours are normal. There is no evidence of focal pulmonary consolidation. There is no evidence of failure. No pleural effusions are visualized.[ No free air is visualized. IMPRESSION: No active disease in the chest. Electronically signed by: Arthur Beauchamp M.D. 04/12/2019 10:[address] ABDOMEN & PELVIS Without Contrast: The appendix is normal in caliber Suggestion of very mild stranding adjacent to the appendix and base of the cecum for example axial 338, cannot exclude early appendicitis, clinically correlate Lung bases are clear Small nonobstructing stones lower pole right kidney No hydronephrosis or perinephric stranding No evidence of ureteral or bladder stone Other solid organs, gallbladder and abdominal aorta appear within limits on noncontrast imaging Ovaries appear within limits Intrauterine device appears centrally located No free fluid Radiologist: Harley Dubose M.D. Study ready at 23:28 and initial results transmitted at 23:50 Blood Pressure Blood Pressure Findings: Normal blood pressure MDM Narrative The patient is a 23-year-old female who presented to the emergency department with her family member for an evaluation of right lower quadrant abdominal pain. The patient was having right-sided abdominal pain which was worse with mov ement. She had pain for approximately 24 to 48 hours. On physical exam she had mostly right upper quadrant pain. The patient was treated with IV fluids and IV pain medication. I discussed the patient's laboratory and radiographic studies with her. She does have a mild elevation in her white blood cell count as well as a CAT scan that shows early appendicitis. On reevaluation the patient did have right lower quadrant abdominal pain. I discussed her case with the on-call general surgeon. The patient was treated with IV antibiotics. At this time the patient is to be held overnight with serial abdominal exams and likely appendectomy in the morning. The patient was agreeable with this plan. Impression & Plan Acute appendicitis, Right sided abdominal pain Discharge Plan Visit Data Chief Complaint: Abdominal Pain Stated Complaint: RT SIDE PAIN ED Provider: Santino Vizcarra Discharge Problem: Acute appendicitis, Right sided abdominal pain Patient Disposition: Being Evaluated by Surgeon Discharge Instructions Interventions: ED Discharge Assessment Last Done: 04/13/19 00:40 Discharge Problem: Acute appendicitis Qualifiers: Acute appendicitis type: unspecified acute appendicitis type Qualified Code(s): K35.80 - Unspecified acute appendicitis The scribe's documentation has been prepared under my direction and personally reviewed by me in its entirety. I confirm that the note above accurately re flects all work, treatment, procedures, and medical decision making performed by me.
[2019-04-13] MEDS ORDERED: ACETAMINOPHEN 1,000 MG/100 ML VIAL IV PRN (00:53)
[2019-04-13] MEDS ORDERED: MoRPHine SULFATE 4 MG/ML 1 ML CARP\\VIAL IV PRN (00:53)
[2019-04-13] MEDS ORDERED: ONDANSETRON INJ 2 MG/ML 2 ML VIAL IV PRN ×2 (00:53→08:00)
[2019-04-13] MEDS ORDERED: MoRPHine SULFATE 2 MG/ML CARP IV PRN (00:53)
[2019-04-13] MEDS: LACTATED RINGER'S 1,000 ML IV SCH ×4 (01:15→20:03)
--- NOTE | 2019-04-13 06:40 | CT Scan Report ---
CT abd pelvis wo con CT DOSE: 1224.72 mGy.cm HISTORY: Flank pain right flank pain TECHNIQUE: Multiaxial CT images of the abdomen and pelvis were performed without contrast. A dose lo wering technique was utilized adhering to the principles of ALARA. COMPARISON STUDY: None. FINDINGS: The lung bases are clear. The unenhanced liver, spleen, gallbladder, pancreas, kidneys, and adrenal glands are within normal limits. No bowel wall thickening or obstruction. The pelvic organs are unremarkable. No suspicious lytic or blastic osseous lesions. Punctate nonobstructing calcificati ons lower pole right kidney. Trace amount of periappendiceal infiltrative change at the appendiceal base. No significant increase in diameter of the appendix. Minimal low-grade appendicitis is not excluded. No evidence for abscess collection or obstruction. Bladder is midline. IMPRESSION: 1. Minimal findings of early appendicitis. 2. No evidence for abscess collection or obstruction. 3. Nonobstructing calcifications lower pole right kidney. The above report was generated using voice recognition software. It may contain grammatical, syntax or spelling errors. Electronically signed by: Frank Rojas M.D. 04/13/2019 6:39 AM
--- NOTE | 2019-04-13 07:18 | History & Physical Report ---
Date of Service April 13, 2019 Assessment & Plan (1) Acute appendicitis: WBC 11, CT shows early appendicitis. Will proceed with laparoscopic appendectomy this morning. as above. pain now localized to RLQ. discussed options/risks ( bleeding/infection/dvt/pe/leaks/injury to another organ etc...) questions answered. lap appy this AM History of Present Illness 23 y/o female with right sided pain over past several days became ore intense last night and localized to RLQ. Primary Care Provider: GAUDENCIO Avendaño Allergies Allergy/AdvReac Type Severity Reaction Status Date / Time No Known Allergies AdvReac Unknown Unverified 04/12/19 22:34 Home Medications Home Medications Medication Instructions Recorded Confirmed Type No Known Home Medications 04/12/19 04/12/19 History hydrocodone-acetaminophen [[place]] 1 - 2 tab PO Q4H #15 tab 04/13/19 Rx Past Med/Surg History Medical History Myalgia (Acute) History in the past. Not currently having any myalgia Post-dates Viral syndrome (Acute) Surgical History History of adenoidectomy History of tonsillectomy Family History Other No pertinent family history in first degree relatives Social History Preferred Language: Serbian Communication Ability: Effective Directional Driller Required: No Beliefs That Will Affect Care: None Current Living Situation: Family Other Information That Helps Us Care for You: No Feels Safe at Home: Yes Safety Concerns: Feels Safe At This Time Smoking Status: Current every day smoker Tobacco Type: cigarettes Cigarettes Per Day: 20 since age 16 Do You Dip or Chew Tobacco: No Second Hand Exposure: No Tobacco Cessation Education Requested by Patient: No Hx Alcohol Use: Yes Alcohol type: beer Hx Substance Use: No Review of Systems Gastrointestinal: + abdominal pain and + nausea Physical Exam Constitutional: WD/WN, vitals as above Respiratory: normal respiratory effort, lungs clear to auscultation Cardiovascular: RRR, no murmur, no edema Gastrointestinal (Abdomen): Inspection/Auscultation: abdomen not distended Percussion/Palpation: + abdomen tender (RLQ) and abdomen soft Skin: no rashes, warm and dry Results & Data Vital Signs (Past 12 Hours) Vital Signs Temp Pulse Pulse Resp BP BP Pulse Ox 04/13/19 00:59 36.7 C 62 18 133/85 100 04/13/19 00:40 75 18 116/75 97 04/13/19 00:06 75 16 117/65 97 04/12/19 23:02 99 04/12/19 22:16 36.7 C 89 16 111/69 100 (1) Acute appendicitis Acute appendicitis type: unspecified acute appendicitis type Qualified Code(s): K35.80 - Unspecified acute appendicitis
--- NOTE | 2019-04-13 07:45 | Anesthesiology Consultation ---
Date of Service April 13, 2019 Assessment & Plan Chart Review Chart Review: Acceptable Risk for Surgery and Patient NOT seen in Pre Admission Testing Consults Requested none ASA ASA3 Proposed Anesthesia Anesthesia Type: General Risk / Benefits Reviewed With: PT / POA / Parent / Guardian, Accepts Plan and Informed Consent Obtained History Surgery Operation Date: 04/13/19 08:15 Proposed Procedures p Laparoscopic Appendectomy - Kyler Hoyt, DO Height/Weight Height: 1.6 m Weight: 112.4 kg Allergies Allergy/AdvReac Type Severity Reaction Status Date / Time No Known Allergies AdvReac Unknown Unverified 04/12/19 22:34 Medications Home Medications Medication Instructions Recorded Confirmed Last Taken No Known Home Medications 04/12/19 04/12/19 Unknown hydrocodone-acetaminophen [[place]] 1 - 2 tab PO Q4H #15 tab 04/13/19 Unknown Active Medications Generic Name Dose Route Start Last Admin Trade Name Freq PRN Reason Stop Dose Admin Lactated Ringer's 1,000 mls @ 125 mls/hr 04/13/19 00:53 04/13/19 01:15 Lr IV 05/13/19 00:52 125 mls/hr .Q8H MAU Administration Morphine Sulfate 4 mg 04/13/19 00:53 04/13/19 06:03 Morphine Sulfate IV 04/27/19 00:52 4 mg Q3H PRN Administration SEVERE Pain (Scale 7,8,9,10) NPO Date Last Intake of Fluids: 04/12/19 Time Last Intake of Fluids: 21:00 Date Last Intake of Solids: 04/12/19 Time Last Intake of Solids: 20:00 Past Medical History Medical History Acute appendicitis Morbid obesity Exercise / Class Metabolic Activity II 4-5 Yardwork/Stairs/Walk up hill Past Family History Family History Other No pertinent family history in first degree relatives Past Surgical History Surgical History History of adenoidectomy History of tonsillectomy Past Anesthesia History No Hx of Anesthesia Complications and No Family Hx of Anesthesia Complications History of PONV No Hx of PONV and No Hx of Motion Sickness Social History Smoking Status: Current every day smoker tobacco type: cigarettes Smoking cigarettes per day: 20 since age 16 Do You Dip or Chew Tobacco: No Hx Alcohol Use: Yes Alcohol type: beer alcohol intake frequency: a few times a week Hx Substance Use: No substance use type: does not use Review of Systems Respiratory: no cough and no chest congestion Cardiovascular: no dyspnea on exertion Gastrointestinal: + abdominal pain; no heartburn, no nausea and no vomiting Physical Exam Vital Signs Last Vital Signs Temp 36.7 C 04/13/19 00:59 Pulse 62 04/13/19 00:59 Resp 18 04/13/19 00:59 BP 133/85 04/13/19 00:59 Pulse Ox 100 04/13/19 00:59 Constitutional + morbidly obese ENMT Mouth: no TMJ abnormality and no TMJ clicking Thyromental Distance: > or= 3.5 Finger Breadths Mallampati Class: II Neck normal visual inspection; neck extension not limited Respiratory Auscultation: lungs clear to auscultation bilaterally Cardiovascular Rate/Rhythm: regular rate and regular rhythm Psychiatric Orientation: alert and oriented x 3 Testing Laboratory Results 04/12/19 22:42 04/12/19 22:42 04/13/19 00:04 Urine Color Yellow Urine Appearance Clear Urine pH 5.5 Ur Specific [place] 1.019 Urine Protein Negative Urine Glucose (UA) Negative Urine Ketones Negative Urine Nitrite Negative Ur Leukocyte Esterase Negative Chest X-Ray Date: 04/12/19 Findings: + NAD
[2019-04-13] MEDS ORDERED: BUPIVACAINE/EPINEPHRINE 0.5% MPF 1:200,000 30 ML VIAL ONE (07:58)
[2019-04-13] MEDS ORDERED: MIDAZOLAM HCL 1 MG/ML 2ML VIAL ONE (08:00)
[2019-04-13] MEDS ORDERED: ePHEDrine sulfate 50 MG/ML AMP IV PRN (08:00)
[2019-04-13] MEDS ORDERED: PROMETHAZINE HCL 12.5 MG in SODIUM CHLORIDE 0.9% 50 ML IV PRN (08:00)
[2019-04-13] MEDS ORDERED: ATROPINE SULFATE 0.1 MG/ML 10ML SYR IV PRN (08:00)
[2019-04-13] MEDS ORDERED: fentaNYL citrate 100 MCG/2 ML VIAL ONE ×2 (08:00→08:59)
[2019-04-13] MEDS ORDERED: PHENYLEPHRINE 100MCG/ML 5ML SYR IV PRN (08:00)
[2019-04-13] MEDS ORDERED: HYDROmorphone INJ 1 MG/ML SYRINGE IV PRN (08:00)
[2019-04-13] MEDS ORDERED: DEXAMETHASONE SOD INJ 4 MG/ML VIAL ONE (08:52)
[2019-04-13] MEDS ORDERED: LIDOCAINE HCL 2% 2 ML VIAL/AMP(20MG/ML) INFIL ONE (08:52)
[2019-04-13] MEDS ORDERED: ONDANSETRON INJ 2 MG/ML 2 ML VIAL ONE (08:52)
[2019-04-13] MEDS ORDERED: ROCURONIUM BROMIDE 10 MG/ML 5 ML VIAL ONE (08:52)
[2019-04-13] MEDS ORDERED: PROPOFOL IV EMULSION 10 MG/ML 20 ML VIAL IV ONE (08:52)
[2019-04-13] MEDS ORDERED: cefOXitin 2,000 MG in DEXTROSE 5% 50 ML IV STA (08:52)
[2019-04-13] MEDS ORDERED: GLYCOPYRROLATE 0.2 MG/ML VIAL ONE (08:53)
[2019-04-13] MEDS ORDERED: NEOSTIGMINE METHYLSULFATE 5 MG/5 ML SYR ONE (08:53)
[2019-04-13] MEDS ORDERED: KETOROLAC 30 MG/ML VIAL ONE (09:09)
--- NOTE | 2019-04-13 09:09 | Operative Report ---
Post Operative Report Pre & Post Diagnosis Operation Date: 04/13/19 08:15 Pre-Op Diagnosis: APPENDICITIS Post-Op Diagnosis: APPENDICITIS Procedure Operation Date: 04/13/19 08:15 Actual Procedures p Laparoscopic Appendectomy(Not Applicable) - Kyler Hoyt DO Surgeon Kyler Hoyt DO Piano Mechanic Apprentice gee Sullivan Estimated Blood Loss 5 Findings Consistent with Post-Op Diagnosis Specimens appendix Description of Procedure After informed consent was obtained the patient was taken to the operating room and placed in supine position. After successful intubation a Meyer catheter was placed and the left arm was tucked. A Meyer catheter was inserted sterilely. I began by making a periumbilical incision with an 11 blade scalpel and carried t his down through the soft tissue using electrocautery. The anterior rectus fascia was opened using electrocautery and 2 #0 Vicryl stay sutures were placed. The peritoneum was elevated using hemostats and incised under direct vision using a Metzenbaum scissor. A finger sweep was performed. A 12 mm Solano trocar was placed and the abdomen was insufflated to 18 mmHg. A laparoscope was inserted and the abdomen was examined in 360. A suprapubic 5 mm port and a left lower quadrant 12 mm port were placed under direct vision. The patient was air planed to the left as well as placed in a slight Trendelenburg position. We began by looking in the right lower quadrant. We were able to readily identify the appendix and it was grossly inflamed. It had not perforated. There is a small amount of purulent fluid in the right lower quadrant and the pelvis. We immediately irrigated and suctioned this out. I was able to use primarily blunt dissection to pull the appendix away from the right lower quadrant sidewall. I was then able to use a LLOYD brown cartridge stapler to transect both the mesentery of the appendix as well as the appendix itself at its base with the cecum. It was then placed into an Endo Catch bag and removed from the camera port site. We thoroughly irrigated the right lower quadrant as well as the pelvis. There was adequate hemostasis. I ran the small bowel backwards from the terminal ileum for about 6 feet all of which was normal. All the peritoneal surfaces were normal. Small/ large bowel, liver, stomach etc. all appeared grossly normal. We did a final irrigation and then removed all the trochars and desufflated the abdomen. The fascia of the camera port was closed using 0 Vicryl in [id number] fashion. Wounds were all irrigated and closed using 4-0 Monocryl. Marcaine was injected around them for postoperative analgesia and skin glue used as a dressing. The patient was awakened extubated and transferred to recovery in stable condition. My physician's program assistant was present through the entire case. She assisted with prepping the patient and helped with exposure for port placement, helped run the camera and helped with fascial/wound closure at the end of the procedure as well as dressing placement. I attest to the content of the Intraoperative Record and any orders documented therein. Any exceptions are noted below. I attest to the content of the Intraoperative Record and any orders documented therein. Any exceptions are noted below.
[2019-04-13] MEDS: fentaNYL citrate 100 MCG/2 ML VIAL IV PRN ×4 (09:26→09:43)
--- NOTE | 2019-04-13 10:07 | Anesthesiology Progress Note ---
Date of Service April 13, 2019 Anesthesia Post Procedure Vital Signs Vital Signs: Temp Pulse Pulse Pulse Resp BP BP 04/13/19 09:55 52 L 15 132/91 04/13/19 09:45 50 L 14 125/85 04/13/19 09:35 51 L 15 133/88 04/13/19 09:21 36.0 C L 55 L 16 128/78 04/13/19 07:47 36.6 C 68 18 130/82 04/13/19 00:59 36.7 C 62 18 133/85 04/13/19 00:40 75 18 116/75 04/13/19 00:06 75 16 117/65 04/12/19 23:02 04/12/19 22:16 36.7 C 89 16 111/69 Pulse Ox 04/13/19 09:55 99 04/13/19 09:45 97 04/13/19 09:35 100 04/13/19 09:21 99 04/13/19 07:47 98 04/13/19 00:59 100 04/13/19 00:40 97 04/13/19 00:06 97 04/12/19 23:02 99 04/12/19 22:16 100 Pain Intensity Right Flank: Pain Intensity: 7 Abdomen: Pain Intensity: 4 Transfer of Care Handoff Completed per policy Notes Mental Status: alert / awake / arousable Patient Amnestic to Procedure: Yes Nausea / Vomiting: adequately controlled Pain: adequately controlled Airway Patency, RR, SpO2: stable & adequate BP & HR: stable & adequate Hydration State: stable & adequate Anesthetic Complications: no major complications apparent
[2019-04-13] MEDS: HYDROCODONE/ACETAMOPHEN 5/325MG TAB PO PRN ×3 (10:32→23:31)
[2019-04-13] MEDS: MoRPHine SULFATE 4 MG/ML 1 ML CARP\\VIAL IV PRN ×2 (12:55→19:58)
[2019-04-14] MEDS: HYDROCODONE/ACETAMOPHEN 5/325MG TAB PO PRN ×2 (03:43→10:50)
[2019-04-14 07:19] VITALS: BP 120/80; PULSE 41; TEMP 97.5; O2SAT 95
[2019-04-14] MEDS: MoRPHine SULFATE 4 MG/ML 1 ML CARP\\VIAL IV PRN (07:31)
--- NOTE | 2019-04-14 07:57 | Surgery Progress Note ---
Date of Service April 14, 2019 Assessment & Plan (1) Acute appendicitis: POD #1 doing well Discharge to home Follow-up 2 weeks Off work until then, instructions given Present on Admission?: Yes Subjective Patient doing well. Taking po and good pain control. No nausea or vomiting. Review of Systems Constitutional: no fever and no chills Cardiovascular: no dyspnea Gastrointestinal: no abdominal pain, no nausea, no vomiting and no problem reported Integumentary: no unusual bruising Physical Exam Constitutional: WD/WN, vitals as above Respiratory: normal respiratory effort, lungs clear to auscultation Cardiovascular: RRR, no murmur, no edema Gastrointestinal (Abdomen): Inspection/Auscultation: normal bowel sounds; abdomen not distended Percussion/Palpation: + abdomen tender (mild) and abdomen soft Musculoskeletal: no cyanosis or clubbing, extremities motor strength 5/5 Skin: no rashes, warm and dry Results & Data Vital Signs (Past 12 Hours) Vital Signs Temp Pulse Pulse Resp BP BP Pulse Ox 04/14/19 07:17 36.4 C L 41 L 18 120/80 95 04/14/19 03:42 50 L 04/14/19 03:33 36.6 C 43 L 16 114/67 97 04/13/19 23:27 55 L 04/13/19 23:15 36.7 C 50 L 16 95/54 L 98 (1) Acute appendicitis Acute appendicitis type: unspecified acute appendicitis type Qualified Code(s): K35.80 - Unspecified acute appendicitis
[2019-04-14] MEDS: LACTATED RINGER'S 1,000 ML IV SCH (08:23)
--- NOTE | 2019-04-19 23:32 | Discharge Summary ---
PRIMARY DISCHARGE DIAGNOSIS: Acute appendicitis. PROCEDURE PERFORMED: Laparoscopic appendectomy. HOSPITAL COURSE: The patient is a 23-year-old female who presented to the Emergency Department overnight with a complaint of several days of abdominal pain, now more intense and localized in the right lower quadrant. White count was [address] was consistent with early appendicitis. She was taken to the operating room in the morning for laparoscopic appendectomy. The procedure was well tolerated. She was returned to the surgical floor for overnight observation. On postoperative day 1, she was tolerating diet and oral analgesics. Her abdomen was benign. She was stable for discharge. DISCHARGE INSTRUCTIONS: Discharge home. Follow up with Dr. Hoyt in 2 weeks. DISCHARGE MEDICATIONS: [facility] 1-2 tablets every 4 hours as needed.
== END 2019-04-14 11:57 | disposition home or self-care (01) ==
LOC: ED 22:11 → 3N 22:11

== ENCOUNTER 2020-01-27 11:33 | Observation (INO) ==
[2020-01-27] MEDS ORDERED: ERTAPENEM SODIUM 10 ML IV STA (11:56)
[2020-01-27] MEDS ORDERED: MoRPHine SULFATE 4 MG/ML 1 ML CARP\\VIAL IV STA (11:58)
[2020-01-27] MEDS ORDERED: ONDANSETRON INJ 2 MG/ML 2 ML VIAL IV STA (11:58)
--- NOTE | 2020-01-27 11:59 | Emergency Department Note ---
History of Present Illness General Chief complaint: Flank Pain Stated complaint: LT SIDE FLANK PAIN, HEMATURIA Time Seen by Provider: 01/27/20 11:43 History of Present Illness Maximum Pain Intensity: 6 This is a 24-year-old female that presents to the emergency department via private vehicle with complaints of "left-sided flank pain, hematuria". Patient states that she was here this past Tuesday and diagnosed with pyelonephritis. She was discharged home on p.o. Keflex. She states that she received a phone call this morning from the hospital indicating that she should return for IV antibiotics. She has persistent and worsening of symptoms since that time. She notes associated chills and nausea but no vomiting or fever. She notes increasing pain. She denies any other pertinent past medical history or allergies. Surgeries are that for pilonidal cyst extraction and appendectomy. She rates the overall discomfort at this time as a 6/10. Home Medications Home Medications Medication Instructions Recorded Confirmed Type Mirena 20 mcg INTRAUTERINE UD 08/14/19 01/27/20 History acetaminophen [Tylenol] 650 mg PO QID PRN 01/25/20 01/27/20 History cephalexin [Keflex] 500 mg PO Q12H 10 Days #20 cap 01/25/20 01/27/20 Rx ibuprofen 400 mg PO Q6H PRN 01/25/20 01/27/20 History ondansetron HCl [Zofran] 4 mg PO TID PRN 5 Days #15 tab 01/25/20 01/27/20 Rx Allergies Allergy/AdvReac Type Severity Reaction Status Date / Time No Known Allergies AdvReac Unknown Verified 01/27/20 11:59 Past Med/Surg History Medical History GERD (gastroesophageal reflux disease) Pilonidal cyst Surgical History History of appendectomy 04/13/2019: MAC 3, grade 2 view. 7.5ETT. No issues. History of excision of pilonidal cyst (08/30/19) Excision of Pilonidal Cyst Dr. Hoyt 08/30/19 History of tonsillectomy and adenoidectomy Family History Other No pertinent family history in first degree relatives Social History Preferred Language: Nicaraguan Communication Ability: Effective Loan Review Officer Required: No Beliefs That Will Affect Care: None Current Living Situation: Family Other Information That Helps Us Care for You: No Feels Safe at Home: Yes Smoking Status: Current every day smoker Tobacco Type: cigarettes ; Cigarettes Per Day: 20 ; Second Hand Exposure: No ; Hx Alcohol Use: Yes Alcohol type: beer Hx Substance Use: No Review of Systems A total of 10 systems reviewed and were otherwise negative Physical Exam Vital Signs Vital Signs - 24 hr 01/27/20 11:37 Temperature 36.6 C Temperature Source Oral Pulse Rate 81 Respiratory Rate 19 Respiratory Effort / Characteristics Non-Labored Spontaneous Respiratory Depth Normal Blood Pressure 168/115 H Blood Pressure Mean 132 Blood Pressure Position Sitting Pulse Oximetry 98 Oxygen Delivery Method Room Air Sepsis Recent Fever Within 48 Hours No Sepsis Action Taken by Nursing No Action Required VITAL SIGNS - Vital signs and nursing notes were reviewed. Stable and afebrile. GENERAL -24-year-old female appearing her stated age who is in no acute distress. Communicates well with provider and answers questions appropriately. SKIN - Without rashes. No meningeal or petechial rash. HEAD - NC/AT. EYES - PERRL with EOMI bilaterally. Sclera anicteric. EARS - No deformities of external structures noted on gross examination bilaterally. NOSE - Midline and without cyanosis. No epistaxis or purulent drainage noted. MOUTH/OROPHARYNX - Without perioral cyanosis. NECK - Neck with FROM. Supple to palpation. No lymphadenopathy noted. No nuchal rigidity. LUNGS - Chest wall symmetric without accessory muscle use, intercostals retractions, or central cyanosis. Normal vesicular breath sounds CTA B/L. No wheezes, rales, or rhonchi appreciated. CARDIAC - RRR with S1/S2. No murmur, rubs, or gallops appreciated. ABDOMEN - Abdominal contour normal without pulsations or visible masses. BS normoactive all four quadrants. No tenderness, palpable masses, hepatosplenomegaly, or ascites noted. No CVA tenderness. EXTREMITIES - No clubbing or peripheral cyanosis. No pretibial edema present. +5/5 strength noted in UE/LE bilaterally. NEUROLOGIC - Cranial nerves II through XII grossly intact. PSYCH - A&O, and cooperates fully with examiner. Pt is very pleasant and interacts well with examiner. Course Administered Medications Morphine Sulfate (Morphine Sulfate) 2 mg IV Q6H PRN PRN Reason: Pain Stop: 02/10/20 13:25 Last Admin: 01/27/20 13:34 Dose: 2 mg Documented by: [id number] Discontinued Medications Ertapenem (Invanz) 10 mls @ 2 mls/min IV NOW STA Stop: 01/27/20 12:00 Last Admin: 01/27/20 12:23 Dose: 2 mls/min Documented by: [id number] Sodium Chloride (Nss 1000ml) 1,000 mls @ 999 mls/hr IV .Q1H1M MAU Stop: 01/27/20 13:00 Last Infusion: 01/27/20 13:38 Dose: 0 mls/hr Documented by: [id number] Admin: 01/27/20 12:22 Dose: 999 mls/hr Documented by: [id number] Morphine Sulfate (Morphine Sulfate) 4 mg IV NOW STA Stop: 01/27/20 11:59 Last Admin: 01/27/20 12:23 Dose: 4 mg Documented by: [id number] Ondansetron HCl (Zofran) 4 mg IV NOW STA Stop: 01/27/20 11:59 Last Admin: 01/27/20 12:23 Dose: 4 mg Documented by: [id number] Medical Decision Making Laboratory Data Result diagrams: 01/27/20 12:09 01/27/20 12:09 Lab Results 01/27/20 01/27/20 01/27/20 Range/Units 12:09 12:09 12:09 WBC 8.96 (4.8-10.8) K/uL RBC 4.09 L (4.2-5.4) M/uL Hgb 12.5 (12.0-16.0) g/dL Hct 37.3 (37-47) % MCV 91.2 (80-100) fL MCH 30.6 (25-34) pg MCHC 33.5 (32-36) g/dL RDW Std Deviation 42.0 (36.4-46.3) fL RDW Coeff of Zahra 12.5 (11.5-14.5) % Plt Count 246 (130-400) K/uL MPV 9.9 (7.4-10.4) fL Immature Gran % (Auto) 0.3 % Neut % (Auto) 58.3 % Lymph % (Auto) 25.6 % [place] % (Auto) 11.5 % Eos % (Auto) 3.9 % Baso % (Auto) 0.4 % Immature Gran # (Auto) 0.03 H (0.00-0.02) K/uL Neut # (Auto) 5.22 (1.4-6.5) K/uL Lymph # (Auto) 2.29 (1.2-3.4) K/uL [place] # (Auto) 1.03 H (0.11-0.59) K/uL Eos # (Auto) 0.35 (0-0.5) K/uL Baso # (Auto) 0.04 (0-0.2) K/uL Sodium 138 (136-145) mmol/L Potassium 3.9 (3.5-5.1) mmol/L Chloride 108 H (98-107) mmol/L Carbon Dioxide 24 (21-32) mmol/L Anion Gap 6.0 (3-11) BUN 7 (7-18) mg/dl Creatinine 0.70 (0.6-1.2) mg/dl Est Cr Clr Drug Dosing 156.0 ml/min Est GFR ( Amer) 141.5 Est GFR (Non-Af Amer) 122.1 BUN/Creatinine Ratio 9.8 L (10-20) Glucose 87 (70-99) mg/dl Lactate 0.9 (0.4-2.0) mmol/L Calcium 9.1 (8.5-10.1) mg/dl Total Bilirubin 0.4 (0.2-1) mg/dl AST 12 L (15-37) U/L ALT 23 (12-78) U/L Alkaline Phosphatase 65 (45-117) U/L Total Protein 7.0 (6.4-8.2) gm/dl Albumin 3.0 L (3.4-5.0) gm/dl Globulin 4.0 (2.5-4.0) gm/dl Albumin/Globulin Ratio 0.8 L (0.9-2) MDM Narrative Patient was seen and evaluated as above in room B7. Review was performed of nursing notes and vital signs. After obtaining a thorough history and physical examination the above work up was performed. She presents to us today after being informed upon positive urine culture results growing out ESBL. She was recently diagnosed with pyelonephritis and I reviewed her previous visit. She was discharged home a few days ago on p.o. Keflex. Her symptoms have persisted and worsened. Her vital signs are stable. Labs were drawn. I discussed this with the attending physician as well as our ED pharmacist and decision was made to start ertapenem. There is no leukocytosis or anemia. No emergent metabolic disturbance. It was felt that she has failed outpatient management with oral antibiotics for pyelonephritis. Given the ESBL it is felt that further evaluation and management in inpatient setting with IV antibiotics would be miguel anted. Case discussed with the hospitalist. Please refer to further documentation regarding her stay. Case was discussed with the attending physician. In the evaluation and treatment of this patient, the following differential diagnoses were considered: Kidney Stone, STI, Bladder Cancer, Amongst Others. Impression & Plan Pyelonephritis, Urinary tract infection due to extended-spectrum beta lactamase (ESBL) producing Escherichia coli Discharge Plan Visit Data *Final* Discharge Date/Time: 01/27/20 13:04 Chief Complaint: Flank Pain Stated Complaint: LT SIDE FLANK PAIN, HEMATURIA ED Provider: Jose Barrios ED Midlevel Provider: Gary Shaikh Discharge Problem: Pyelonephritis, Urinary tract infection due to extended-spectrum beta lactamase (ESBL) producing Escherichia coli Patient Disposition: Admitted As Inpatient Discharge Instructions Interventions: ED Discharge Assessment Last Done: 01/27/20 13:04
[2020-01-27] MEDS ORDERED: SODIUM CHLORIDE 0.9% 1000ML 1,000 ML IV SCH (12:00)
[2020-01-27 12:24] LABS: Basophils # (auto) 0.04 K/uL (0-0.2); Basophils % (auto) 0.4 %; Eosinophils # (auto) 0.35 K/uL (0-0.5); Eosinophils % (auto) 3.9 %; Hematocrit (blood only) 37.3 % (37-47); Hemoglobin 12.5 g/dL (12.0-16.0); Immature Granulocytes # (auto) 0.03 K/uL (0.00-0.02); Immature Granulocytes % (auto) 0.3 %; Lymphocytes # (auto) 2.29 K/uL (1.2-3.4); Lymphocytes % (auto) 25.6 %; Mean Corpuscular Hemoglobin 30.6 pg (25-34); Mean Corpuscular Hgb Conc 33.5 g/dL (32-36); Mean Corpuscular Volume 91.2 fL (80-100); Mean Platelet Volume 9.9 fL (7.4-10.4); Monocytes # (auto) 1.03 K/uL (0.11-0.59); Monocytes % (auto) 11.5 %; Neutrophils # (auto) 5.22 K/uL (1.4-6.5); Neutrophils % (auto) 58.3 %; Platelet Count 246 K/uL (130-400); RDW Coefficient of Variation 12.5 % (11.5-14.5); Red Blood Count 4.09 M/uL (4.2-5.4); White Blood Count 8.96 K/uL (4.8-10.8)
--- NOTE | 2020-01-27 12:40 | History & Physical Report ---
Date of Service January 27, 2020 Assessment & Plan (1) Pyelonephritis: Patient has left-sided pyelonephritis which is likely caused by ESBL E. coli. Patient is usually treated with Keflex but culture showed that this was resistant. Patient be treated with Invanz once her urine test is negative (ordered in the ER but does not appear to be collected yet). We can continue this for now. When symptoms subside, patient can likely twisting frame changer to Bactrim to finish course as an outpatient with close follow-up (again, assuming test negative). Continue IV morphine as needed for pain. Can also use Tylenol as needed. History of Present Illness Primary Care Provider: Sally Hernandez MD This is a 24-year-old female with no significant past medical history that presents today with flank pain and hematuria. Patient comes with her mother and is a very good historian. Patient tells me she started with left flank pain around 01/20. This was not severe but starting 01/23 pain started having modesta hematuria. She did not describe any fevers but did have chills throughout this. Her appetite was poor but she had no nausea or vomiting. She presented to the emergency room on 01/24. A CT scan at that time showed possible left-sided pyelonephritis and patient was discharged from the ER with a prescription for Keflex. Cultures were taken and resulted today. This showed ESBL E. coli that was resistant to Keflex and the patient was called to return to the emergency room. She tells me that she does not feel any better from her previous visit which is understandable. She continues to have left flank pain and. She was given some morphine in the emergency room which she feels is worked well for her pain. She is otherwise in no distress and appears to be comfortable at the time my evaluation. Allergies Allergy/AdvReac Type Severity Reaction Status Date / Time No Known Allergies AdvReac Unknown Verified 01/27/20 11:59 Home Medications Home Medications Medication Instructions Recorded Confirmed Type Mirena 20 mcg INTRAUTERINE UD 08/14/19 01/27/20 History acetaminophen [Tylenol] 650 mg PO QID PRN 01/25/20 01/27/20 History cephalexin [Keflex] 500 mg PO Q12H 10 Days #20 cap 01/25/20 01/27/20 Rx ibuprofen 400 mg PO Q6H PRN 01/25/20 01/27/20 History ondansetron HCl [Zofran] 4 mg PO TID PRN 5 Days #15 tab 01/25/20 01/27/20 Rx Past Med/Surg History Social History Preferred Language: German Communication Ability: Effective Space Sciences Director Required: No Beliefs That Will Affect Care: None Current Living Situation: Family Feels Safe at Home: Yes Smoking Status: Current every day smoker Tobacco Type: cigarettes ; Cigarettes Per Day: 20 CIG DAILY ; Second Hand Exposure: No ; Hx Alcohol Use: Yes Alcohol type: beer Hx Substance Use: No Review of Systems Constitutional: + chills; no fever, no weakness, no weight loss and no weight gain Eyes: as per Subjective / HPI Respiratory: no cough, no chest congestion, no dyspnea and no dyspnea on exertion Cardiovascular: no chest pain, no orthopnea, no palpitations, no lightheadedness and no edema Gastrointestinal: no abdominal pain, no nausea, no vomiting, no constipation and no diarrhea/loose stools Genitourinary: + hematuria; no dysuria, no difficulty urinating, no urinary frequency, no urinary hesitancy, no urinary urgency and no flank pain Musculoskeletal: no back pain, no neck pain, no joint pain, no stiffness and no myalgia Integumentary: no rash Neurologic: no gait abnormality, no unsteadiness, no falls and no generalized weakness Physical Exam Constitutional: cooperative; no acute distress Neck: trachea midline, no thyromegaly Respiratory: normal respiratory effort Auscultation: lungs clear to auscultation bilaterally; no crackles, no rales, no rhonchi and no wheezes Cardiovascular: Rate/Rhythm: regular rate and regular rhythm Heart Sounds: normal S1 and normal S2 Gastrointestinal (Abdomen): Inspection/Auscultation: abdomen normal to inspection Percussion/Palpation: abdomen soft; abdomen nontender, no guarding, abdomen not rigid and no hepatosplenomegaly Skin: no rashes, warm and dry Genitourinary: Left CVA tenderness with palpation. Results & Data Vital Signs (Past 12 Hours) Vital Signs Temp Pulse Resp BP Pulse Ox 01/27/20 11:37 36.6 C 81 19 168/115 H 98 Laboratory Results Hemoglobin 8.9, hemoglobin of 12.5, hematocrit of 37.3, platelets of 246. BMP is pending at the time of this dictation. I do see a UA from 01/24 which had over 30 WBCs, over 40 RBCs, 3+ blood, 1+ ketones, was positive for nitrates. Urine culture from 01/24 shows ESBL E. coli. This is sensitive to amikacin, cefoxitin, ertapenem, Zosyn, and Bactrim. Diagnostic Findings CT SCAN OF THE ABDOMEN AND PELVIS WITHOUT CONTRAST CLINICAL HISTORY: L ab/flank pain; uti/pyelo symptoms COMPARISON STUDY: 04/12/2019 TECHNIQUE: CT scan of the abdomen and pelvis was performed from the lung bases to the proximal femurs. Images are reviewed in the axial, sagittal, and coronal planes. IV contrast was not administered for this examination. A dose lowering technique was utilized adhering to the principles of ALARA. CT DOSE: 1353.27 mGy.cm FINDINGS: Lower chest: There are minimal basilar atelectatic changes Liver: The unenhanced liver is normal in size, contour, and attenuation. There is no intrahepatic biliary ductal dilatation. Gallbladder: Unremarkable. Spleen: Normal in size and attenuation. Pancreas: Unremarkable. Adrenal glands: Unremarkable. Kidneys: There are punctate nonobstructing lower pole right renal calculi. There is a very subtle left perinephric stranding. There is suspected mild uroepithelial thickening of the left renal pelvis. Renal infection must be considered. Bowel: There are no transition zones indicate bowel obstruction. By history the appendix is surgically absent. There is no acute diverticulitis Peritoneum: There is no intraperitoneal free air or abdominal ascites. Vasculature: The abdominal aorta is normal in course and caliber. Adenopathy: None. Pelvic viscera: There is an indwelling IUD. Skeletal structures: No destructive osseous lesions are seen. IMPRESSION: 1. Punctate nonobstructing lower pole right renal calculi 2. Suspected mild uroepithelial thickening of the left renal pelvis with minimal left-sided perinephric stranding. Renal infection must be considered given the provided clinical history and age of the patient 3. No evidence of bowel obstruction. No evidence of free air. PG Care Time/CCT Total # of Minutes Spent Total Time Spent with Patient: Total time spent is greater than 50% in coordination of care (as documented) at patient's floor/unit and/or counseling patient: Coding Level of Care Code 30606 Initial Inpt Care Lvl 3 Diagnoses Pyelonephritis N12
[2020-01-27 12:42] LABS: BUN Creatinine Ratio 9.8 (10-20); Calcium 9.1 mg/dl (8.5-10.1); Est GFR (African American) 141.5; Est GFR (Non-African American) 122.1; Potassium 3.9 mmol/L (3.5-5.1)
[2020-01-27 12:45] LABS: Albumin Globulin Ratio 0.8 (0.9-2); Bilirubin,Total 0.4 mg/dl (0.2-1)
[2020-01-27] MEDS ORDERED: ONDANSETRON INJ 2 MG/ML 2 ML VIAL IV PRN (13:26)
[2020-01-27] MEDS ORDERED: ZOLPIDEM TARTRATE 5 MG TAB PO PRN (13:26)
[2020-01-27] MEDS: MoRPHine SULFATE 2 MG/ML CARP IV PRN ×2 (13:34→21:58)
[2020-01-27] MEDS: IBUPROFEN 200 MG TAB PO PRN (16:09)
[2020-01-27] MEDS ORDERED: MoRPHine SULFATE 2 MG/ML CARP IV STA (16:47)
[2020-01-27 16:48] LABS: Appearance Urine Cloudy (Clear); Bilirubin Urine Negative (Negative); Blood Urine 3+ (Negative); Color Urine Amber; Glucose Urine UA Negative (Negative); Ketones Urine Negative (Negative); Leukocyte Esterase Urine Negative (Negative); Nitrite Urine Negative (Negative); Protein Urine Trace (Negative); Specific Gravity Urine 1.025 (1.000-1.030); Urobilinogen Urine Negative (Negative)
[2020-01-27 16:52] LABS: Pregnancy Test, Urine Negative (Negative)
[2020-01-27 16:55] LABS: Bacteria Urine 1+ (Negative); RBC Urine >30 /hpf (0-4)
[2020-01-27 16:56] LABS: WBC Urine 0-5 /hpf (0-5)
[2020-01-27] MEDS: ACETAMINOPHEN 325 MG TAB PO PRN (23:49)
[2020-01-28] MEDS: MoRPHine SULFATE 2 MG/ML CARP IV PRN ×2 (05:51→15:39)
[2020-01-28 06:13] LABS: Basophils # (auto) 0.05 K/uL (0-0.2); Basophils % (auto) 0.7 %; Eosinophils # (auto) 0.35 K/uL (0-0.5); Eosinophils % (auto) 4.9 %; Hematocrit (blood only) 37.2 % (37-47); Hemoglobin 12.1 g/dL (12.0-16.0); Immature Granulocytes # (auto) 0.02 K/uL (0.00-0.02); Immature Granulocytes % (auto) 0.3 %; Lymphocytes # (auto) 2.71 K/uL (1.2-3.4); Lymphocytes % (auto) 38.2 %; Mean Corpuscular Hemoglobin 29.7 pg (25-34); Mean Corpuscular Hgb Conc 32.5 g/dL (32-36); Mean Corpuscular Volume 91.2 fL (80-100); Monocytes # (auto) 0.78 K/uL (0.11-0.59); Neutrophils # (auto) 3.18 K/uL (1.4-6.5); Neutrophils % (auto) 44.9 %; Platelet Count 214 K/uL (130-400); RDW Coefficient of Variation 12.7 % (11.5-14.5); RDW Standard Deviation 42.1 fL (36.4-46.3); Red Blood Count 4.08 M/uL (4.2-5.4); White Blood Count 7.09 K/uL (4.8-10.8)
[2020-01-28] MEDS: IBUPROFEN 200 MG TAB PO PRN ×2 (06:16→13:06)
[2020-01-28 06:41] LABS: BUN Creatinine Ratio 11.8 (10-20); Calcium 8.8 mg/dl (8.5-10.1); Creatinine Clr Calc Pharmacy 141.8 ml/min; Est GFR (African American) 126.1; Est GFR (Non-African American) 108.8; Magnesium 1.9 mg/dl (1.8-2.4); Potassium 4.3 mmol/L (3.5-5.1)
--- NOTE | 2020-01-28 10:09 | Hospitalist Progress Note ---
Date of Service January 28, 2020 Assessment & Plan (1) Pyelonephritis: - CT with punctate nonobstructing lower pole R renal caculi; suspected mild uroepithelial thickening of the L renal pelvis with minimal L sided perinephric stranding - UCx with ESBL E. coli - new UCx and BCx obtained and pending - Continue Invanz for now; likely can convert to Bactrim to complete a 14 day course - Continue pain control/nausea control Disposition: Await cx; pending symptom improvement likely convert to oral Abx and discharge home tomorrow Admission and Anticipated Discharge Date Admission Date: January 27, 2020 Anticipated date of discharge: 01/29/20 Subjective Reports feeling well today. Still with intermittent L flank discomfort most prevent after urinating. Pain medication seems to be helping. Tolerating a diet without issue. No feelings of fever/chills. Awaiting new UCx and BCx Review of Systems Constitutional: no fever and no chills Respiratory: no cough and no dyspnea Cardiovascular: no chest pain, no palpitations and no edema Gastrointestinal: no abdominal pain, no nausea, no vomiting, no constipation and no diarrhea/loose stools Genitourinary: + flank pain; no dysuria, no vaginal discharge and no vaginal itching Integumentary: no rash Physical Exam Constitutional: WD/WN, vitals as above Eyes: + anicteric sclerae ENMT: Ears: no hearing impairment Neck: trachea midline Respiratory: normal respiratory effort, lungs clear to auscultation Cardiovascular: RRR, no murmur, no edema Gastrointestinal (Abdomen): Inspection/Auscultation: normal bowel sounds Percussion/Palpation: abdomen soft; abdomen nontender Musculoskeletal: no cyanosis or clubbing, extremities motor strength 5/5 Skin: no rashes, warm and dry Neurologic: moves all extremities Psychiatric: A+Ox3, euthymic affect Results & Data ([facility]) Vital Signs (Past 12 Hours) Vital Signs Temp Pulse Resp BP Pulse Ox 01/28/20 08:20 37.0 C 60 18 101/63 96 01/27/20 23:30 36.4 C L 62 18 142/93 H 100 PG Care Time/CCT Total # of Minutes Spent Total Time Spent with Patient: Total time spent is greater than 50% in coordination of care (as documented) at patient's floor/unit and/or counseling patient: Coding Level of Care Code 79943 Subseq Hosp Care Lvl 2 Diagnoses Pyelonephritis N12
[2020-01-28] MEDS: ACETAMINOPHEN 325 MG TAB PO PRN ×2 (10:15→23:30)
[2020-01-28] MEDS: ERTAPENEM SODIUM 1,000 MG in SODIUM CHLORIDE 0.9% 50 ML IV SCH (12:24)
[2020-01-29] MEDS: ERTAPENEM SODIUM 1,000 MG in SODIUM CHLORIDE 0.9% 50 ML IV SCH (10:22)
--- NOTE | 2020-01-29 13:36 | Discharge Summary ---
Date of Service January 29, 2020 Admission HPI Per Admitting Provider This is a 24-year-old female with no significant past medical history that presents today with flank pain and hematuria. Patient comes with her mother and is a very good historian. Patient tells me she started with left flank pain around 01/20. This was not severe but starting 01/23 pain started having modesta hematuria. She did not describe any fevers but did have chills throughout this. Her appetite was poor but she had no nausea or vomiting. She presented to the emergency room on 01/24. A CT scan at that time showed possible left-sided pyelonephritis and patient was discharged from the ER with a prescription for Keflex. Cultures were taken and resulted today. This showed ESBL E. coli that was resistant to Keflex and the patient was called to return to the emergency room. She tells me that she does not feel any better from her previous visit which is understandable. She continues to have left flank pain and. She was given some morphine in the emergency room which she feels is worked well for her pain. She is otherwise in no distress and appears to be comfortable at the time my evaluation. Principal Diagnosis ESBL E. coli UTI/Pyelonephritis Discharge Exam Constitutional WD/WN, vitals as above Eyes + anicteric sclerae ENMT Ears: no hearing impairment Neck trachea midline Respiratory normal respiratory effort, lungs clear to auscultation Cardiovascular RRR, no murmur, no edema Gastrointestinal (Abdomen) Inspection/Auscultation: normal bowel sounds Percussion/Palpation: abdomen soft; abdomen nontender Musculoskeletal no cyanosis or clubbing, extremities motor strength 5/5 Skin no rashes, warm and dry Neurologic moves all extremities Psychiatric A+Ox3, euthymic affect Discharge Data Allergies Allergy/AdvReac Type Severity Reaction Status Date / Time No Known Allergies AdvReac Unknown Verified 01/31/20 09:27 Consultations 01/27/20 12:09 ED Decision to Admit Stat Hospital Course (1) Pyelonephritis: - CT with punctate nonobstructing lower pole R renal caculi; suspected mild uroepithelial thickening of the L renal pelvis with minimal L sided perinephric stranding - UCx with ESBL E. coli - new UCx and BCx obtained and NGTD - Was started on Invanz and will continue to complete a total of 14 day treatments - U/S Guided IV line arranged and planning on daily MTU visits for Abx -- Discussed with pharmacy and ID that even though Bactrim is sensitive on Cx it is not recommended for use in Pyelo Disposition: MTU for treatment of UTI/Pyelo Total Time Total Time Spent Total Time Spent (In Minutes): Greater than 30 minutes Discharge Plan Discharge Items Patient Disposition: Home - Self-Care Reason For Visit: PYELO Discharge Diagnosis: Pyelonephritis Activity: Resume your previous activity Non-emergency contact: Primary Care Provider Call non-emergency contact if: you have any medication questions, your symptoms worsen and you have a fever Follow-up/Referrals: Sally Hernandez MD [Primary Care Provider] - 02/06/20 12:00 pm Diet: Regular Addtl Attending Provider Instructions: Pyelonephritis: - This is when a urinary tract infection travels higher up into the urinary tract into the kidney. The treatment is the same just need longer antibiotics then a lower urinary tract infection - You were treated with Invanz here in the hospital. Even though the culture allows for Bactrim we discussed with infectious disease and the recommendation would be to not use Bactrim when we are dealing with pyelonephritis to prevent not fully treating this. - Therefore you will go to the Cancer Center or Medical Treatment Unit which is on the backside of the hospital daily for 12 days to get Invanz/Ertapenem. This will start tomorrow on 01/29. Your appointment is for 930 AM. - You can continue you use Advil/Tylenol or mild pain. Will give a prescription for a stronger pain medication if needed. This does have Tylenol in it so be mindful of total Tylenol dosing each day. We like to keep this less then 3250 mg in a 24 hour period of Tylenol. Do not drive when taking this medication. Pending Studies at Discharge: No Stand-Alone Forms: [facility], Opioid Pain Management, Smoking Cessation Medications and DC Order Prescriptions: New hydrocodone-acetaminophen [Paradox] 5-325 mg tablet 1 tab PO Q6H PRN (Reason: pain) 3 Days Qty: 12 RF: 0 ertapenem [Invanz] 1 gram recon soln 1 gm IV DAILY 12 Days RF: 0 Continued Mirena 20 mcg/24 hours (5 yrs) 52 mg Intrauterine Device 20 mcg INTRAUTERINE UD RF: 0 acetaminophen [Tylenol] 325 mg Tablet 650 mg PO QID PRN (Reason: Pain) RF: 0 ibuprofen 200 mg Tablet 400 mg PO Q6H PRN (Reason: Pain) RF: 0 Discontinued cephalexin [Keflex] 500 mg capsule 500 mg PO Q12H 10 Days Qty: 20 RF: 0 Discharge Orders: Discharge Order (Routine); Ordered 01/29/20 Ordered By: Rosemary Montaño/Other Patient Handouts: Pyelonephritis Dc, Pyelonephritis Dc Ch Admission Data Admit Date/Time: 01/27/20 12:43 Attending Provider: Husam Pino Admit Provider: Agustin Dominguez Primary Care Provider: Sally Hernandez Other Providers: Agustin Dominguez Other Interventions: Discharge Summary Assessment (RN) Last Done: 01/29/20 13:57 DC Date/Time DO NOT enter until pt leaves facility: 01/29/20 14:20 Supervising Physician Co-Signing Physician Notes Attending note: patient seen and examined with Rosemary Caban PA-C. I agree with her discharge summary. I personally reviewed the labs and imaging findings. patient doing well, no fevers, eating well US guided IV placed, set up for MTU all questions answered - Pyelonephritis with ESBL E coli will treat with Ertapenem, needs total of 14 days set up for outpatient IV treatment at the MTU vitals stable, no fever, feeling much better after a few days of treatment d/c to home Coding Level of Care Code D/C Day Management >30 mins Diagnoses Pyelonephritis N12
== END 2020-01-29 14:20 | disposition home or self-care (01) ==
LOC: ED 11:33 → 4W 12:43 → INTOOBSV 12:43 → SUATTDRO 12:43 → 4W 13:04 → 3N 23:30

== ENCOUNTER 2020-04-03 17:25 | Inpatient (IN) ==
[2020-04-03] MEDS ORDERED: SODIUM CHLORIDE 0.9% 1000ML 2,000 ML IV ONE (17:43)
[2020-04-03] MEDS ORDERED: ONDANSETRON INJ 2 MG/ML 2 ML VIAL IV STA ×2 (17:43→19:08)
[2020-04-03] MEDS ORDERED: MoRPHine SULFATE 10 MG/ML CARP/VIAL IV STA (17:44)
--- NOTE | 2020-04-03 17:47 | Emergency Department Note ---
Impression & Plan Pyelonephritis, Flank Pain, Sepsis ED Provider Note NAME: DESTINEY PAT AGE: 24 SEX: F : 1995 ARRIVES VIA: Walk-In INFORMANT: Patient, ED PROVIDER(S): Kilo Umana DO CHIEF COMPLAINT: Right flank pain HPI: Patient is a 24-year-old female who presents the ER for severe right flank pain. This has been going on for the past 3 days. Gradually getting worse. She describes it as a sharp stabbing pain and is 6 out of 10 which can increase to an 8 out of 10. She notes she had some dysuria and urgency 2 days ago but that has now resolved. She is been taking Tylenol for fever of 102. Past surgical history includes an appendectomy. Last menstrual period was 2 weeks ago and appropriate timing. She does have a history of an ESBL which required IV antibiotics following discharge from multiple days. Pt denies headache, change in vision, chest pain, shortness of breath, nausea, vomiting, diarrhea, and melena. ROS: See above HPI for pertinent positives & negatives. A total of 10 systems reviewed and were otherwise negative. PAST MEDICAL HISTORY:See Below PAST SURGICAL HISTORY:See Below FAMILY HISTORY:See Below SOCIAL HISTORY:See Below HOME MEDICATIONS:See Below ALLERGIES:See Below VITALS:See Below PHYSICAL EXAMINATION: GENERAL: Sitting up in bed, alert, uncomfortable, nontoxic EYE EXAM: normal conjunctiva. OROPHARYNX: no exudate, no erythema, lips, buccal mucosa, and tongue normal and mucous membranes are moist NECK: supple, no nuchal rigidity, no adenopathy, non-tender LUNGS: Clear to auscultation. Normal chest wall mechanics HEART: no murmurs, S1 normal and S2 normal ABDOMEN: abdomen soft, non-tender, normo-active bowel sounds, no masses, no rebound or guarding. BACK: Back is symmetrical on inspection and there is no deformity, no midline tenderness, no CVA tenderness. SKIN: no rashes and no bruising UPPER EXTREMITIES: upper extremities are grossly normal. LOWER EXTREMITIES: No pitting edema. NEURO EXAM: Normal sensorium, cranial nerves II-XII grossly intact, normal speech, no gross weakness of arms, no gross weakness of legs. MEDICAL DECISION MAKING: Patient is a 24-year-old female who presents the ER with a past medical history of ESBL for fevers the past 24 hours associated with right flank pain which started 3 days ago. She did have some urinary symptoms about 2 days ago but they have resolved. She describes her pain as a 6 out of 10. IV was established blood work was obtained showed a leukocytosis of 14,000. No significant anemia. BMP with LFTs bilirubin and lipase was unremarkable. UA was contaminated with multiple epithelial cells but I do favor this consistent with Tom with a CT showing pyelonephritis. was negative. Patient was initially given 2 g of IV Rocephin but after previous urine culture was reviewed she was given Invanz. She was given 2 L IV fluids as well as narcotic. She was updated and discussed with hospitalist for admission secondary to sepsis and pyelonephritis. Triage Nursing notes reviewed. Prior medical records reviewed Vital Signs: reviewed and remarkable for hypertensive and tachycardic Differential diagnosis: Differential diagnosis includes etiologies such as sepsis, UTI, pneumonia, metabolic, electrolyte abnormalities, cardiac sources, intracerebral event, toxicologic, neurological, as well as others were entertained. ER treatment provided: See below Diagnostics interpreted by me: ECG: none Cardiac Monitoring: An order was placed for continuous cardiac monitoring. The monitor shows a rate of 105 with sinus rhythm. Laboratory studies: As stated above and show below. Imaging studies: CT abdomen pelvis shows acute appendicitis. Consultation(s): Discussed with the hospitalist for admission secondary to sepsis and pyelonephritis. ED COURSE: Procedures: none Critical Care: I have personally spent 35 minutes of critical care time in the direct management of this patient. This includes bedside care, interpretation of sandra gnostic studies, and testing, discussion with consultants, patient, and family members, and other required patient management activities. This 35 minutes is in excess of all separately billable procedures. 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: No Beliefs That Will Affect Care: None Current Living Situation: Family Feels Safe at Home: Yes Safety Concerns: Feels Safe At This Time Smoking Status: Never smoker Tobacco Type: cigarettes ; Cigarettes Per Day: 20 ; Second Hand Exposure: No ; Hx Alcohol Use: No Hx Substance Use: No Allergies Allergies Allergy/AdvReac Type Severity Reaction Status Date / Time No Known Allergies Allergy Verified 04/03/20 18:48 Home Meds Home Medications Medication Instructions Recorded Confirmed Mirena 20 mcg INTRAUTERINE DIRECTED 08/14/19 04/03/20 acetaminophen [Tylenol] 650 mg PO QID PRN 01/25/20 04/03/20 ibuprofen 400 mg PO Q6H PRN 01/25/20 04/03/20 Results & Data (ED) Vital Signs Vital Signs - 24 hr 04/03/20 17:28 04/03/20 18:00 04/03/20 19:20 Temperature 36.9 C Temperature Source Oral Pulse Rate 112 H Pulse Rate [Finger] 128 H Pulse Rate from SpO2 Sensor Pulse Rhythm Regular Respiratory Rate 18 24 Respiratory Effort / Characteristics Non-Labored Spontaneous Respiratory Depth Normal Normal Respiratory Pattern Regular Blood Pressure 148/90 H Blood Pressure [Right Arm] 155/97 H Blood Pressure Mean 109 Blood Pressure Mean [Right Arm] 116 Blood Pressure Position Sitting Pulse Oximetry 100 98 95 Oxygen Delivery Method Room Air Room Air Room Air Sepsis Recent Fever Within 48 Hours Yes Sepsis New/Unexplained Change in Mental Status No Sepsis Action Taken by Nursing No Action Required 04/03/20 19:30 04/03/20 20:00 Temperature Temperature Source Pulse Rate 120 H 125 H Pulse Rate [Finger] Pulse Rate from SpO2 Sensor 121 H 124 H Pulse Rhythm Respiratory Rate 22 27 H Respiratory Effort / Characteristics Respiratory Depth Respiratory Pattern Blood Pressure 143/106 H 118/86 Blood Pressure [Right Arm] Blood Pressure Mean 114 93 Blood Pressure Mean [Right Arm] Blood Pressure Position Pulse Oximetry 98 95 Oxygen Delivery Method Room Air Room Air Sepsis Recent Fever Within 48 Hours Sepsis New/Unexplained Change in Mental Status Sepsis Action Taken by Nursing Laboratory Data Result diagrams: 04/03/20 17:48 04/03/20 17:48 Lab Results 04/03/20 04/03/20 04/03/20 Range/Units 17:48 17:48 17:54 WBC 14.36 H (4.8-10.8) K/uL RBC 4.49 (4.2-5.4) M/uL Hgb 13.6 (12.0-16.0) g/dL Hct 40.7 (37-47) % MCV 90.6 (80-100) fL MCH 30.3 (25-34) pg MCHC 33.4 (32-36) g/dL RDW Std Deviation 42.7 (36.4-46.3) fL RDW Coeff of Zahra 12.8 (11.5-14.5) % Plt Count 232 (130-400) K/uL MPV 9.8 (7.4-10.4) fL Immature Gran % (Auto) 0.2 % Neut % (Auto) 82.9 % Lymph % (Auto) 7.5 % [place] % (Auto) 8.8 % Eos % (Auto) 0.5 % Baso % (Auto) 0.1 % Immature Gran # (Auto) 0.03 H (0.00-0.02) K/uL Neut # (Auto) 11.89 H (1.4-6.5) K/uL Lymph # (Auto) 1.08 L (1.2-3.4) K/uL [place] # (Auto) 1.27 H (0.11-0.59) K/uL Eos # (Auto) 0.07 (0-0.5) K/uL Baso # (Auto) 0.02 (0-0.2) K/uL Sodium 138 (136-145) mmol/L Potassium 4.0 (3.5-5.1) mmol/L Chloride 104 (98-107) mmol/L Carbon Dioxide 28 (21-32) mmol/L Anion Gap 6.0 (3-11) BUN 9 (7-18) mg/dl Creatinine 0.99 (0.6-1.2) mg/dl Est Cr Clr Drug Dosing 109.8 ml/min Est GFR ( Amer) 93.1 Est GFR (Non-Af Amer) 80.3 BUN/Creatinine Ratio 9.3 L (10-20) Glucose 70 (70-99) mg/dl Calcium 9.2 (8.5-10.1) mg/dl Total Bilirubin 0.5 (0.2-1) mg/dl AST 14 L (15-37) U/L ALT 23 (12-78) U/L Alkaline Phosphatase 77 (45-117) U/L Total Protein 7.6 (6.4-8.2) gm/dl Albumin 3.7 (3.4-5.0) gm/dl Globulin 3.9 (2.5-4.0) gm/dl Albumin/Globulin Ratio 0.9 (0.9-2) Lipase 59 L (73-393) U/L Specimen Hemolysis Urine Color Yellow Urine Appearance Turbid A (Clear) Urine pH 7.0 (4.5-7.5) Ur Specific [place] 1.017 (1.000-1.030) Urine Protein 2+ H (Negative) Urine Glucose (UA) Negative (Negative) Urine Ketones Negative (Negative) Urine Blood 2+ H (Negative) Urine Nitrite Negative (Negative) Urine Bilirubin Negative (Negative) Urine Urobilinogen Negative (Negative) Ur Leukocyte Esterase 3+ H (Negative) Urine WBC (Auto) >30 H (0-5) /hpf Urine RBC (Auto) 10-30 H (0-4) /hpf U Hyaline Cast (Auto) 1-5 (0-5) /lpf U Epithel Cells (Auto) >30 H (0-5) /lpf Urine Bacteria (Auto) 3+ H (Negative) POC Ur Test (NEG) 04/03/20 Range/Units 17:54 WBC (4.8-10.8) K/uL RBC (4.2-5.4) M/uL Hgb (12.0-16.0) g/dL Hct (37-47) % MCV (80-100) fL MCH (25-34) pg MCHC (32-36) g/dL RDW Std Deviation (36.4-46.3) fL RDW Coeff of Zahra (11.5-14.5) % Plt Count (130-400) K/uL MPV (7.4-10.4) fL Immature Gran % (Auto) % Neut % (Auto) % Lymph % (Auto) % [place] % (Auto) % Eos % (Auto) % Baso % (Auto) % Immature Gran # (Auto) (0.00-0.02) K/uL Neut # (Auto) (1.4-6.5) K/uL Lymph # (Auto) (1.2-3.4) K/uL [place] # (Auto) (0.11-0.59) K/uL Eos # (Auto) (0-0.5) K/uL Baso # (Auto) (0-0.2) K/uL Sodium (136-145) mmol/L Potassium (3.5-5.1) mmol/L Chloride (98-107) mmol/L Carbon Dioxide (21-32) mmol/L Anion Gap (3-11) BUN (7-18) mg/dl Creatinine (0.6-1.2) mg/dl Est Cr Clr Drug Dosing ml/min Est GFR ( Amer) Est GFR (Non-Af Amer) BUN/Creatinine Ratio (10-20) Glucose (70-99) mg/dl Calcium (8.5-10.1) mg/dl Total Bilirubin (0.2-1) mg/dl AST (15-37) U/L ALT (12-78) U/L Alkaline Phosphatase (45-117) U/L Total Protein (6.4-8.2) gm/dl Albumin (3.4-5.0) gm/dl Globulin (2.5-4.0) gm/dl Albumin/Globulin Ratio (0.9-2) Lipase (73-393) U/L Specimen Hemolysis Urine Color Urine Appearance (Clear) Urine pH (4.5-7.5) Ur Specific [place] (1.000-1.030) Urine Protein (Negative) Urine Glucose (UA) (Negative) Urine Ketones (Negative) Urine Blood (Negative) Urine Nitrite (Negative) Urine Bilirubin (Negative) Urine Urobilinogen (Negative) Ur Leukocyte Esterase (Negative) Urine WBC (Auto) (0-5) /hpf Urine RBC (Auto) (0-4) /hpf U Hyaline Cast (Auto) (0-5) /lpf U Epithel Cells (Auto) (0-5) /lpf Urine Bacteria (Auto) (Negative) POC Ur Test NEG (NEG) Administered Medications Acetaminophen (Tylenol) 650 mg PO Q4H PRN PRN Reason: pain/fever Stop: 05/03/20 21:10 Last Admin: 04/03/20 21:20 Dose: 650 mg Documented by: [id number] Sodium Chloride (Nss 1000ml) 1,000 mls @ 999 mls/hr IV .Q1H1M ONE Stop: 04/03/20 22:40 Last Admin: 04/03/20 21:52 Dose: 999 mls/hr Documented by: [id number] Ioversol (Optiray 320 100ml) 91 ml IV ONCE PRN PRN Reason: Interaction Checking Stop: 04/07/20 18:36 Last Admin: 04/03/20 18:37 Dose: 91 ml Documented by: [id number] Discontinued Medications Sodium Chloride (Nss 1000ml) 2,000 mls @ 999 mls/hr IV .Q2H1M ONE Stop: 04/03/20 19:43 Last Infusion: 04/03/20 20:01 Dose: 0 mls/hr Documented by: [id number] Admin: 04/03/20 18:00 Dose: 999 mls/hr Documented by: [id number] Ertapenem (Invanz) 10 mls @ 2 mls/min IV NOW STA Stop: 04/03/20 18:58 Last Admin: 04/03/20 19:07 Dose: 2 mls/min Documented by: [id number] Piperacillin Sod/Tazobactam (Sod 3.375 gm/ Dextrose) 115 mls @ 28.75 mls/hr IV Q8H MAU; Protocol Stop: 04/13/20 20:14 Last Admin: 04/03/20 20:36 Dose: 28.8 mls/hr Documented by: [id number] Morphine Sulfate (Morphine Sulfate) 6 mg IV NOW STA Stop: 04/03/20 17:45 Last Admin: 04/03/20 18:10 Dose: Not Given Documented by: [id number] Morphine Sulfate (Morphine Sulfate) Confirm Administered Dose 2 mg .ROUTE .STK- MED ONE Stop: 04/03/20 18:01 Last Admin: 04/03/20 18:08 Dose: 2 mg Documented by: [id number] Morphine Sulfate (Morphine Sulfate) Confirm Administered Dose 4 mg .ROUTE .STK- MED ONE Stop: 04/03/20 18:02 Last Admin: 04/03/20 18:08 Dose: 4 mg Documented by: [id number] Ondansetron HCl (Zofran) 4 mg IV NOW STA Stop: 04/03/20 17:44 Last Admin: 04/03/20 18:02 Dose: 4 mg Documented by: [id number] Ondansetron HCl (Zofran) 4 mg IV NOW STA Stop: 04/03/20 19:09 Last Admin: 04/03/20 19:23 Dose: 4 mg Documented by: [id number] Discharge Plan Visit Data *Final* Discharge Date/Time: 04/03/20 20:59 Chief Complaint: Flank Pain Stated Complaint: POSSIBLE KIDNEY INFECTION ED Provider: Kilo Umana Discharge Problem: Pyelonephritis, Flank Pain, Sepsis Patient Disposition: Admitted As Inpatient Discharge Instructions Interventions: ED Discharge Assessment Last Done: 04/03/20 20:59 Discharge Problem: Sepsis Qualifiers: Sepsis type: sepsis due to unspecified organism Sepsis acute organ dysfunction status: unspecified Qualified Code(s): A41.9 - Sepsis, unspecified organism
[2020-04-03 17:59] LABS: Basophils # (auto) 0.02 K/uL (0-0.2); Basophils % (auto) 0.1 %; Eosinophils # (auto) 0.07 K/uL (0-0.5); Eosinophils % (auto) 0.5 %; Hematocrit (blood only) 40.7 % (37-47); Hemoglobin 13.6 g/dL (12.0-16.0); Immature Granulocytes # (auto) 0.03 K/uL (0.00-0.02); Immature Granulocytes % (auto) 0.2 %; Lymphocytes # (auto) 1.08 K/uL (1.2-3.4); Lymphocytes % (auto) 7.5 %; Mean Corpuscular Hemoglobin 30.3 pg (25-34); Mean Corpuscular Hgb Conc 33.4 g/dL (32-36); Mean Corpuscular Volume 90.6 fL (80-100); Mean Platelet Volume 9.8 fL (7.4-10.4); Monocytes # (auto) 1.27 K/uL (0.11-0.59); Monocytes % (auto) 8.8 %; Neutrophils # (auto) 11.89 K/uL (1.4-6.5); Neutrophils % (auto) 82.9 %; Platelet Count 232 K/uL (130-400); RDW Coefficient of Variation 12.8 % (11.5-14.5); RDW Standard Deviation 42.7 fL (36.4-46.3); Red Blood Count 4.49 M/uL (4.2-5.4); White Blood Count 14.36 K/uL (4.8-10.8)
[2020-04-03] MEDS ORDERED: MoRPHine SULFATE 2 MG/ML CARP ONE (18:00)
[2020-04-03] MEDS ORDERED: MoRPHine SULFATE 4 MG/ML 1 ML CARP\\VIAL ONE (18:01)
[2020-04-03 18:03] LABS: Appearance Urine Turbid (Clear); Bacteria Urine Automated 3+ (Negative); Bilirubin Urine Negative (Negative); Blood Urine 2+ (Negative); Color Urine Yellow; Epithelial Cell Urine Auto >30 /lpf (0-5); Glucose Urine UA Negative (Negative); Ketones Urine Negative (Negative); Leukocyte Esterase Urine 3+ (Negative); Nitrite Urine Negative (Negative); Protein Urine 2+ (Negative); Specific Gravity Urine 1.017 (1.000-1.030); Urobilinogen Urine Negative (Negative); WBC Urine Automated >30 /hpf (0-5)
[2020-04-03 18:24] LABS: Albumin Globulin Ratio 0.9 (0.9-2); Albumin Level 3.7 gm/dl (3.4-5.0); BUN Creatinine Ratio 9.3 (10-20); Bilirubin,Total 0.5 mg/dl (0.2-1); Calcium 9.2 mg/dl (8.5-10.1); Creatinine Clr Calc Pharmacy 109.8 ml/min; Est GFR (African American) 93.1; Est GFR (Non-African American) 80.3; Globulin 3.9 gm/dl (2.5-4.0); Total Protein 7.6 gm/dl (6.4-8.2)
[2020-04-03] MEDS ORDERED: IOVERSOL 100ml IV PRN (18:37)
[2020-04-03] MEDS ORDERED: ERTAPENEM SODIUM 10 ML IV STA (18:54)
--- NOTE | 2020-04-03 19:03 | CT Scan Report ---
ABDOMEN AND PELVIS CT WITH IV CONTRAST CT DOSE: 1389.29 mGy.cm HISTORY: Acute severe right-sided flank pain severe r flank pain TECHNIQUE: Multiaxial CT images of the abdomen and pelvis were performed following the IV administrat ion of 91 cc of Optiray 320, A dose lowering technique was utilized adhering to the principles of AL CLAUDIO. COMPARISON STUDY: CT abdomen and pelvis 01/25/2020 FINDINGS: Mild mosaic attenuation of the basal right lower lobe suggest a degree of air trapping. No pneumatosi s or pneumoperitoneum. The imaged inferior cardiac chambers are unremarkable. Spleen, pancreas, adren al glands and gallbladder appear unremarkable. Liver is also within normal limits. There is a mildly decreased enhancement with striated appearance involves the inferior poles of the bilateral kidneys. There is mild urothelial thickening of the bilateral collecting systems and proximal ureters. There a re several punctate nonobstructing calculi of the inferior pole right kidney. No ureteral calculi or obstructive uropathy. Unremarkable urinary bladder. IUD appears appropriately positioned within the u terus. Follicular changes of the left ovary. There is a 6.2 x 4.5 cm cystic lesion of the right adnex um. Aorta and IVC are unremarkable. There are a few mildly prominent periaortic lymph nodes measuring up to 8 mm, likely reactive. No bowel obstruction or bowel wall thickening. Appendectomy. No ascites or mesenteric inflammation. S oft tissues are unremarkable. The bones appear intact. IMPRESSION: 1. Nonobstructing right nephrolithiasis. No ureteral calculi or obstructive uropathy. 2. Mild patchy enhancement of the bilateral kidneys is suggestive of pyelonephritis. Areas of bilater al urothelial thickening suggests associated infectious pyelitis. Correlate with urinalysis findings. 3. No bowel obstruction or bowel wall thickening. 4. Appendectomy. 5. 6.2 x 4.5 cm right ovarian cyst. ACT 112: Negative or not required by law. The above report was generated using voice recognition software. It may contain grammatical, syntax o r spelling errors. Electronically signed by: Kamlesh Monaco M.D. 04/03/2020 7:02 PM
[2020-04-03] MEDS ORDERED: PIPERACILL/TAZOBAC CONSULT ACTIVE PRN (20:11)
[2020-04-03] MEDS ORDERED: PIPERACILLIN/TAZOBACTAM 3.375 GM in DEXTROSE 5% 100 ML IV SCH (20:15)
--- NOTE | 2020-04-03 20:59 | History & Physical Report ---
Date of Service April 03, 2020 Assessment & Plan (1) Right sided abdominal pain: Colby Aguirre is a 24 y/o F w/ PMH significant for multi-drug resistant E. coli urinary tract infection, dyspepsia, and chronic daily headache; who presented to the ED for right sided flank pain that had progressed over the last three days. Right sided abdominal pain: - patient has extensive history of multi-drug resistant E. coli UTIs; on presentation to the ED patient was tachycardic, tachypneic, and febrile - urinalysis demonstrated 2+ blood, 3+ Leuk esterase, >30 WBC, and 3+ bacteria - urine culture pending - CT abd/pelvis: 1. Nonobstructing right nephrolithiasis. No ureteral calculi or obstructive uropathy. 2. Mild patchy enhancement of the bilateral kidneys is suggestive of pyelonephritis. Areas of bilateral urothelial thickening suggests associated infectious pyelitis. - received Ertapenem in ED, will continue broad coverage with Zosyn pending urine culture - patient with extensive history of complex skin and urinary infections, concern that this could represent immunodeficiency - IgG, IgM, IgA within normal limits - blood cultures pending - Lactate pending Diet: NPO w/ sips and chips and meds DVT ppx: deferred at this time Code Status: Full code History of Present Illness Primary Care Provider: Sally Hernandez MD Colby Aguirre is a 24 y/o F w/ PMH significant for multi-drug resistant E. coli urinary tract infection, dyspepsia, and chronic daily headache; who presented to the ED for right sided flank pain that had progressed over the last three days. Over this time the abdominal pain has been gradually getting worse, currently described as a sharp stabbing pain. Has had some discomfort with urination, increased frequency, and urinary urgency 2 days ago, that ultimately resolved. Was admitted to [facility] in January with multi-drug resistant E. coli, which ultimately required two weeks of IV Invanz following discharge. Ultimately had improvement in symptoms prior to recent illness. Allergies Allergy/AdvReac Type Severity Reaction Status Date / Time No Known Allergies Allergy Verified 04/03/20 18:48 Home Medications Home Medications Medication Instructions Recorded Confirmed Type Mirena 20 mcg INTRAUTERINE DIRECTED 08/14/19 04/03/20 History acetaminophen [Tylenol] 650 mg PO QID PRN 01/25/20 04/03/20 History ibuprofen 400 mg PO Q6H PRN 01/25/20 04/03/20 History Past Med/Surg History Medical History GERD (gastroesophageal reflux disease) Pilonidal cyst Surgical History History of appendectomy 04/13/2019: MAC 3, grade 2 view. 7.5ETT. No issues. History of excision of pilonidal cyst (08/30/19) Excision of Pilonidal Cyst Dr. 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 Beliefs That Will Affect Care: None Current Living Situation: Family Feels Safe at Home: Yes Safety Concerns: Feels Safe At This Time Smoking Status: Never smoker Tobacco Type: cigarettes ; Cigarettes Per Day: 20 ; Second Hand Exposure: No ; Hx Alcohol Use: No Hx Substance Use: No Review of Systems Review of Systems: All systems reviewed & are unremarkable except as noted in HPI & below Physical Exam Constitutional: WD/WN, vitals as above Eyes: PERRL, conjunctivae normal, anicteric sclerae ENMT: external ear and nose normal, oropharynx normal Neck: normal visual inspection Respiratory: normal respiratory effort, lungs clear to auscultation Cardiovascular: Rate/Rhythm: regular rate and regular rhythm Heart Sounds: normal S1 and normal S2; no gallop, no murmur and no cardiac rub Vessels: no JVD Extremities: no edema Gastrointestinal (Abdomen): normal bowel sounds, soft, nontender, no hepatosplenomegaly Musculoskeletal: no cyanosis or clubbing, extremities motor strength 5/5 Neurologic: patellar DTR's 2+ bilat, sensation intact CN's II-XI intact bilaterally and moves all extremities Genitourinary: + CVA tenderness Lymphatic: no cervical or axillary lymphadenopathy Results & Data Results & Data ([facility]) Vital Signs (Past 12 Hours) Vital Signs Temp Pulse Pulse Resp BP BP Pulse Ox 04/03/20 20:30 121 H 22 117/79 95 04/03/20 20:00 125 H 27 H 118/86 95 04/03/20 19:30 120 H 22 143/106 H 98 04/03/20 19:20 128 H 24 155/97 H 95 04/03/20 18:00 98 04/03/20 17:28 36.9 C 112 H 18 148/90 H 100 Laboratory Results 04/03/20 04/03/20 04/03/20 Range/Units 20:27 20:27 17:54 WBC (4.8-10.8) K/uL RBC (4.2-5.4) M/uL Hgb (12.0-16.0) g/dL Hct (37-47) % MCV (80-100) fL MCH (25-34) pg MCHC (32-36) g/dL RDW Std Deviation (36.4-46.3) fL RDW Coeff of Zahra (11.5-14.5) % Plt Count (130-400) K/uL MPV (7.4-10.4) fL Immature Gran % (Auto) % Neut % (Auto) % Lymph % (Auto) % [place] % (Auto) % Eos % (Auto) % Baso % (Auto) % Immature Gran # (Auto) (0.00-0.02) K/uL Neut # (Auto) (1.4-6.5) K/uL Lymph # (Auto) (1.2-3.4) K/uL Finney # (Auto) (0.11-0.59) K/uL Eos # (Auto) (0-0.5) K/uL Baso # (Auto) (0-0.2) K/uL Sodium (136-145) mmol/L Potassium (3.5-5.1) mmol/L Chloride (98-107) mmol/L Carbon Dioxide (21-32) mmol/L Anion Gap (3-11) BUN (7-18) mg/dl Creatinine (0.6-1.2) mg/dl Est Cr Clr Drug Dosing ml/min Est GFR ( Amer) Est GFR (Non-Af Amer) BUN/Creatinine Ratio (10-20) Glucose (70-99) mg/dl Calcium (8.5-10.1) mg/dl Total Bilirubin (0.2-1) mg/dl AST (15-37) U/L ALT (12-78) U/L Alkaline Phosphatase (45-117) U/L Total Protein (6.4-8.2) gm/dl Albumin (3.4-5.0) gm/dl Globulin (2.5-4.0) gm/dl Albumin/Globulin Ratio (0.9-2) Lipase (73-393) U/L Specimen Hemolysis Urine Color Urine Appearance (Clear) Urine pH (4.5-7.5) Ur Specific [place] (1.000-1.030) Urine Protein (Negative) Urine Glucose (UA) (Negative) Urine Ketones (Negative) Urine Blood (Negative) Urine Nitrite (Negative) Urine Bilirubin (Negative) Urine Urobilinogen (Negative) Ur Leukocyte Esterase (Negative) Urine WBC (Auto) (0-5) /hpf Urine RBC (Auto) (0-4) /hpf U Hyaline Cast (Auto) (0-5) /lpf U Epithel Cells (Auto) (0-5) /lpf Urine Bacteria (Auto) (Negative) POC Ur Test NEG (NEG) IgG Pending IgA Pending IgM Pending IgD Pending IgE Pending 04/03/20 04/03/20 04/03/20 Range/Units 17:54 17:48 17:48 WBC 14.36 H (4.8-10.8) K/uL RBC 4.49 (4.2-5.4) M/uL Hgb 13.6 (12.0-16.0) g/dL Hct 40.7 (37-47) % MCV 90.6 (80-100) fL MCH 30.3 (25-34) pg MCHC 33.4 (32-36) g/dL RDW Std Deviation 42.7 (36.4-46.3) fL RDW Coeff of Zahra 12.8 (11.5-14.5) % Plt Count 232 (130-400) K/uL MPV 9.8 (7.4-10.4) fL Immature Gran % (Auto) 0.2 % Neut % (Auto) 82.9 % Lymph % (Auto) 7.5 % Finney % (Auto) 8.8 % Eos % (Auto) 0.5 % Baso % (Auto) 0.1 % Immature Gran # (Auto) 0.03 H (0.00-0.02) K/uL Neut # (Auto) 11.89 H (1.4-6.5) K/uL Lymph # (Auto) 1.08 L (1.2-3.4) K/uL Finney # (Auto) 1.27 H (0.11-0.59) K/uL Eos # (Auto) 0.07 (0-0.5) K/uL Baso # (Auto) 0.02 (0-0.2) K/uL Sodium 138 (136-145) mmol/L Potassium 4.0 (3.5-5.1) mmol/L Chloride 104 (98-107) mmol/L Carbon Dioxide 28 (21-32) mmol/L Anion Gap 6.0 (3-11) BUN 9 (7-18) mg/dl Creatinine 0.99 (0.6-1.2) mg/dl Est Cr Clr Drug Dosing 109.8 ml/min Est GFR ( Amer) 93.1 Est GFR (Non-Af Amer) 80.3 BUN/Creatinine Ratio 9.3 L (10-20) Glucose 70 (70-99) mg/dl Calcium 9.2 (8.5-10.1) mg/dl Total Bilirubin 0.5 (0.2-1) mg/dl AST 14 L (15-37) U/L ALT 23 (12-78) U/L Alkaline Phosphatase 77 (45-117) U/L Total Protein 7.6 (6.4-8.2) gm/dl Albumin 3.7 (3.4-5.0) gm/dl Globulin 3.9 (2.5-4.0) gm/dl Albumin/Globulin Ratio 0.9 (0.9-2) Lipase 59 L (73-393) U/L Specimen Hemolysis Urine Color Yellow Urine Appearance Turbid A (Clear) Urine pH 7.0 (4.5-7.5) Ur Specific [place] 1.017 (1.000-1.030) Urine Protein 2+ H (Negative) Urine Glucose (UA) Negative (Negative) Urine Ketones Negative (Negative) Urine Blood 2+ H (Negative) Urine Nitrite Negative (Negative) Urine Bilirubin Negative (Negative) Urine Urobilinogen Negative (Negative) Ur Leukocyte Esterase 3+ H (Negative) Urine WBC (Auto) >30 H (0-5) /hpf Urine RBC (Auto) 10-30 H (0-4) /hpf U Hyaline Cast (Auto) 1-5 (0-5) /lpf U Epithel Cells (Auto) >30 H (0-5) /lpf Urine Bacteria (Auto) 3+ H (Negative) POC Ur Test (NEG) IgG IgA IgM IgD IgE Medications Administered Current Inpatient Medications Piperacillin Sod/Tazobactam (Sod 3.375 gm/ Dextrose) 115 mls @ 28.75 mls/hr IV Q8H MAU; Protocol Stop: 04/13/20 20:14 Last Admin: 04/03/20 20:36 Dose: 28.8 mls/hr Documented by: Ioversol (Optiray 320 100ml) 91 ml IV ONCE PRN PRN Reason: Interaction Checking Stop: 04/07/20 18:36 Last Admin: 04/03/20 18:37 Dose: 91 ml Documented by: Miscellaneous Information (Consult) 1 ea N/A UD PRN PRN Reason: Consult Stop: 05/03/20 20:10 Supervising Physician Co-Signing Physician Notes Attending addendum: I have physically seen this patient, have supervised the medical residents activities, and agree with the H&P unless as otherwise noted. Assessment and Plan: Bilateral pyelonephritis/multidrug-resistant ESBL E. coli- Zosyn IV. Hemoglobin studies within normal, however, IgG total was low, would suggest ordering IgG subclasses. Follow blood cultures. Follow urine culture sensitivity. IV fluids. Zofran 4 mg IV every 6 hours as needed. Consult urology Remaining orders and notations as noted. Resident Activity Tracking Resident Involvement: Resident Care Provided Care Provided: Adult Hospital Medicine
[2020-04-03] MEDS ORDERED: MAGNESIUM HYDROXIDE SUSP 30 ML UDC PO PRN (21:11)
[2020-04-03] MEDS ORDERED: ALUMINUM/MAGNESIUM SUSP 30 ML UDC PO PRN (21:11)
[2020-04-03] MEDS ORDERED: ACETAMINOPHEN 325 MG TAB PO PRN (21:11)
[2020-04-03] MEDS ORDERED: ONDANSETRON INJ 2 MG/ML 2 ML VIAL IV PRN (21:11)
[2020-04-03] MEDS ORDERED: POLYETHYLENE (MIRALAX) 17 GM PACK PO PRN (21:11)
[2020-04-03 21:15] LABS: Immunoglobulin M 64.2 mg/dl (40-230)
[2020-04-03] MEDS ORDERED: SODIUM CHLORIDE 0.9% 1000ML 1,000 ML IV ONE (21:40)
[2020-04-03] MEDS ORDERED: ACETAMINOPHEN 500 MG TAB PO ONE (22:17)
[2020-04-03] MEDS: SODIUM CHLORIDE 0.9% 1000ML 1,000 ML IV SCH (23:05)
[2020-04-04] MEDS: PIPERACILLIN/TAZOBACTAM 4.5 GM in DEXTROSE 5% 100 ML IV SCH ×3 (03:43→19:43)
[2020-04-04 06:15] LABS: Basophils # (auto) 0.02 K/uL (0-0.2); Basophils % (auto) 0.1 %; Eosinophils # (auto) 0.01 K/uL (0-0.5); Eosinophils % (auto) 0.1 %; Hematocrit (blood only) 34.4 % (37-47); Hemoglobin 11.3 g/dL (12.0-16.0); Immature Granulocytes # (auto) 0.04 K/uL (0.00-0.02); Immature Granulocytes % (auto) 0.3 %; Lymphocytes # (auto) 1.46 K/uL (1.2-3.4); Lymphocytes % (auto) 10.1 %; Mean Corpuscular Hemoglobin 29.8 pg (25-34); Mean Corpuscular Hgb Conc 32.8 g/dL (32-36); Mean Corpuscular Volume 90.8 fL (80-100); Mean Platelet Volume 9.8 fL (7.4-10.4); Monocytes # (auto) 1.31 K/uL (0.11-0.59); Monocytes % (auto) 9.1 %; Neutrophils # (auto) 11.55 K/uL (1.4-6.5); Neutrophils % (auto) 80.3 %; Platelet Count 178 K/uL (130-400); RDW Standard Deviation 43.1 fL (36.4-46.3); Red Blood Count 3.79 M/uL (4.2-5.4); White Blood Count 14.39 K/uL (4.8-10.8)
[2020-04-04] MEDS: SODIUM CHLORIDE 0.9% 1000ML 1,000 ML IV SCH ×2 (06:26→14:13)
[2020-04-04 06:53] LABS: BUN Creatinine Ratio 8.8 (10-20); Calcium 7.8 mg/dl (8.5-10.1); Creatinine Clr Calc Pharmacy 147.4 ml/min; Est GFR (African American) 130.2; Est GFR (Non-African American) 112.4; Potassium 3.7 mmol/L (3.5-5.1)
--- NOTE | 2020-04-04 08:02 | Family Medicine Progress Note ---
Date of Service April 04, 2020 Assessment & Plan (1) History of ESBL E. coli infection: 24 yo F PMHx ESBL E. coli UTI, dyspepsia, chronic daily headache admitted for sepsis likely 2/2 ESBL E. coli pyelonephritis. Sepsis in setting of recurrent ESBL E. coli UTI with 4/4 SIRS Criteria, salvador hernandez: - Pt met criteria for sepsis on arrival with Tmax 39.4, HR 122, RR 30, WBC 14.36, UA with 3+ bacteria, 3+ LE. - In ED given 3L NSS and continued on NSS @ 125cc/hr; UCx and BCx x2 drawn prior to empiric dosing of ertapenem. Continued on Zosyn. - Patient afebrile since 9PM 04/03, vitals stable. - CTAP with signs of pyelonephritis bilaterally. - UCx this AM growing E. coli; last culture in January grew ESBL E.coli sensitive to ertapenem and Zosyn; will continue Zosyn and deescalate/escalate as needed with UCx sensitivities and symptoms. - Urology consult this AM agreed with antibiotic therapy, will follow pt in 1-2 months outpatient for workup of causes of recurrent UTI. - Continue fluids, escalate to full diet. - Zofran PRN nausea, morphine 2mg q6h PRN pain. - Tylenol PRN fever. Ovarian cyst: - CTAP showed a right sided 6.2 x 4.5 cm ovarian cyst, not mentioned on prior imaging in January. - Pt has had Mirena IUD for 2 years following the of her son. - No pelvic pain. - Will need follow up outpatient with Gynecology for imaging of cyst with vaginal ultrasound. Headache: - Pt has chronic headache, takes OTC medications with relief. - Tylenol PRN pain. Code Status: FULL CODE DVT ppx:SCDs, ad justa as tolerated FEN/GI: regular diet Dispo: Med/Surg (2) Sepsis: (3) Chronic daily headache: (4) Dyspepsia: (5) Urinary tract infection due to extended-spectrum beta lactamase (ESBL) producing Escherichia coli: (6) Flank Pain: (7) Pyelonephritis: (8) Exogenous obesity: Admission and Anticipated Discharge Date Admission Date: April 03, 2020 Supervising Physician Co-Signing Physician Notes I personally examined the patient and verified all lund points of history and exam, discussed case, and agree with decision making with Dr. De with the following additions/exceptions: Patient continues to have right and some left-sided flank pain, no abdominal pains. Her dysuria has improved. Continues to spike fevers but overall feeling better. Nausea and vomiting are improved and she is ready to eat. Vitals reviewed Gen: AAOx3, NAD HEENT: Anicteric sclerae, EOMI CV: RRR no mgr nl S1S2 Pulm: CTAB no wcr Abd: +BS soft NT ND no masses or hernias, positive bilateral CVA tenderness Ext: No edema, 2+ DP pulses Skin: No rashes, warm/dry Neuro: Full strength throughout Labs and cultures reviewed Imaging studies reviewed 24-year-old female with a history of recurrent UTIs including in childhood, here with E. coli UTI-sensitivities pending -Continue Zosyn -Continue IV fluids, pain control, antiemetics -Advance diet today Tylenol as needed for fevers -Follow CBC-leukocytosis persists but expect this will improve in the next day or so -Appreciate urology consultation-needs outpatient follow-up given recurrent severe infections-she may have VUR given history of UTIs in childhood Also with nephrolithiasis-needs stone work-up as an outpatient Subjective Pt with last fever at 9PM last night to 39.2, given Tylenol with resolution and no fevers since. Given morphine 6mg IV x1 for pain. Had one time BP 80s/50s this AM at 7, repeat was also 80s/50s but patient was not having SOB, CP, palpitations, dizziness, nausea with this BP. Since vitals at 7am has not been tachycardic or tachypneic, saturating well on room air. Sleeping comfortably on my arrival into the room. This morning reports that her pain is mostly right sided flank, crampy in nature, 7/10 on pain scale; no associated nausea or vomiting at this time. No dysuria or gross hematuria. No abdominal pain. With regard to her UTIs, states that she can recall having some UTIs "even as a child" but that they have gotten worse over the last year, with several hospitalizations or ER visits for treatment of infections or pain. Does not report history of renal calculi. Stays well-hydrated throughout the day normally. Is sexually active, does not void post-coitally. Wipes from front to back with urination/defecation. No abnormal vaginal or urethral discharge. Has not seen a Urologist in the past for her recurrent UTIs. Does not have a history of ovarian cysts to her knowledge. Had the Mirena placed 2 years ago after the of her son. Review of Systems Constitutional: no fever and no chills Respiratory: no cough, no dyspnea and no wheezing Cardiovascular: no chest pain, no palpitations and no edema Gastrointestinal: no abdominal pain, no nausea, no vomiting, no constipation and no diarrhea/loose stools Genitourinary: + flank pain (R sided); no dysuria, no hematuria, no abnormal periods (has IUD in place but does have monthly cycles, "normal"), no vaginal discharge and no vaginal itching Integumentary: no rash Neurologic: no dizziness and no headache(s) Physical Exam Constitutional: WD/WN, vitals as above Eyes: PERRL, conjunctivae normal, anicteric sclerae ENMT: external ear and nose normal, oropharynx normal Neck: normal visual inspection Respiratory: normal respiratory effort, lungs clear to auscultation Cardiovascular: RRR, no murmur, no edema Gastrointestinal (Abdomen): normal bowel sounds, soft, nontender, no hepatosplenomegaly no suprapubic tenderness. R sided CVA tenderness. Skin: no rashes, warm and dry Psychiatric: A+Ox3, euthymic affect Results & Data ([facility]) Vital Signs (Past 12 Hours) Vital Signs Temp Pulse Pulse Resp BP BP BP 04/04/20 07:34 36.5 C 57 L 18 89/57 L 82/52 L 04/04/20 06:05 36.7 C 04/03/20 23:52 37.8 C H 107 H 18 103/68 04/03/20 22:46 111 H 04/03/20 22:21 04/03/20 21:56 39.2 C H 119 H 118/75 04/03/20 21:23 120 H 122/74 04/03/20 21:11 39.4 C H 120 H 30 H 120/74 04/03/20 20:30 121 H 22 117/79 Pulse Ox Pulse Ox 04/04/20 07:34 98 04/04/20 06:05 04/03/20 23:52 93 04/03/20 22:46 04/03/20 22:21 94 04/03/20 21:56 95 04/03/20 21:23 96 04/03/20 21:11 96 04/03/20 20:30 95 Resident Activity Tracking Resident Involvement: Resident Care Provided Care Provided: Adult Hospital Medicine (1) Sepsis Sepsis acute organ dysfunction status: unspecified Sepsis type: sepsis due to unspecified organism Qualified Code(s): A41.9 - Sepsis, unspecified organism
--- NOTE | 2020-04-04 09:18 | Urology Consultation ---
Date of Consultation April 04, 2020 Assessment & Plan (1) Urinary tract infection due to extended-spectrum beta lactamase (ESBL) producing Escherichia coli: Patient with second episode of severe pyelonephritis with resistant species in past. Last episode was in January. No triggering events. No severe issues. no major urinary issues prior. Does void frequently but also states she hydrates well and believes this to be the cause. Discussed UTI. Discussed Pyelo. Patient has small non obstructing right renal stones. Discussed other sources. Mother also has frequent UTI. No other family history of issues. NO previous issues in childhood. NO major changes or issues or new problems. Plan to continue with supportive care. Continue with anticobiotics and deseculate based on sensitivities. PLan follow up in 1-2 months to discussed workup for sources. (2) Flank Pain: History of Present Illness Attending Physician: Hannah Chapa MD History of Present Illness New consultation for patient with UTI/Pyelo, discomfort, and ill feelings. Patient developed sudden onset of pain into flank going down and radiating into groin and back in waves comes and goes. Can be severe at times. Discussed and reviewed patient's family history for any history of issues, infections, and disease. Also, discussed patient's medical/surgery history especially related to any history of urinary issues or stone disease. Patient was admitted and is undergoing observation with broad spectrum IV antibiotics. Allergies Allergy/AdvReac Type Severity Reaction Status Date / Time No Known Allergies Allergy Verified 04/03/20 18:48 Home Medications Home Medications Medication Instructions Recorded Confirmed Type Mirena 20 mcg INTRAUTERINE DIRECTED 08/14/19 04/03/20 History acetaminophen [Tylenol] 650 mg PO QID PRN 01/25/20 04/03/20 History ibuprofen 400 mg PO Q6H PRN 01/25/20 04/03/20 History Patient History Medical History GERD (gastroesophageal reflux disease) Pilonidal cyst Surgical History History of appendectomy 04/13/2019: MAC 3, grade 2 view. 7.5ETT. No issues. History of excision of pilonidal cyst (08/30/19) Excision of Pilonidal Cyst Dr. 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 Patient is well nourished and well kept. HEENT: Normocephalic Atraumatic. Inspection normal. Cranial Nerves 2-12 Grossly intact. Nares are clear. Neck is supple. Normal inspection of face. Normal inspection of neck. Neurologic: No deficits on inspection. Baseline for motor function and sensory. Psychologic: Normal affect. Respiratory: Nonlabored. No use of accessory muscles. No tachypnea or dyspnea. Cardiovascular: No tachycardia Skin: [place] and Dry. No rashes or visible lesions. Extremities: Moving without issues. No motor deficits on inspection Lymphatics: No edema Abdomen: Soft Non-distended. No acites. No rebound or guarding. Results & Data Vital Signs (Past 12 Hours) Vital Signs Temp Pulse Pulse Resp BP BP Pulse Ox 04/04/20 07:34 36.5 C 57 L 18 89/57 L 82/52 L 98 04/04/20 06:05 36.7 C 04/03/20 23:52 37.8 C H 107 H 18 103/68 93 04/03/20 22:46 111 H 04/03/20 22:21 04/03/20 21:56 39.2 C H 119 H 118/75 95 04/03/20 21:23 120 H 122/74 96 Pulse Ox 04/04/20 07:34 04/04/20 06:05 04/03/20 23:52 04/03/20 22:46 04/03/20 22:21 94 04/03/20 21:56 04/03/20 21:23 PG Care Time/CCT Total # of Minutes Spent Total Time Spent with Patient: Total time spent is greater than 50% in coordination of care (as documented) at patient's floor/unit and/or counseling patient: Coding Level of Care Code 93851 Inpt Consult Level 5 Diagnoses Urinary tract infection due to extended-spectrum beta lactamase (ESBL) producing Escherichia coli N39.0; B96.29; Z16.12 Flank Pain R10.9
[2020-04-04] MEDS ORDERED: MoRPHine SULFATE 2 MG/ML CARP IV STA (10:10)
[2020-04-04] MEDS: ACETAMINOPHEN 500 MG TAB PO PRN ×2 (11:31→15:34)
[2020-04-04] MEDS ORDERED: MoRPHine SULFATE 2 MG/ML CARP IV PRN (17:56)
--- NOTE | 2020-04-04 20:49 | Billing Data ---
Date of Service April 04, 2020 Coding Level of Care Code 78529 Subseq Hosp Care Lvl 2
--- NOTE | 2020-04-04 21:07 | Billing Data ---
Date of Service April 04, 2020 Coding Level of Care Code 07873 Initial Inpt Care Lvl 2
[2020-04-04] MEDS: PANTOprazole 40 MG TAB PO SCH (22:36)
[2020-04-04 22:46] LABS: D Dimer 610 ug/L FEU (0-500)
[2020-04-04] MEDS ORDERED: OPTIRAY 320 125ml IV PRN (23:35)
[2020-04-05 00:10] VITALS: O2SAT 96
[2020-04-05] MEDS: PIPERACILLIN/TAZOBACTAM 4.5 GM in DEXTROSE 5% 100 ML IV SCH (04:41)
[2020-04-05 06:25] LABS: Basophils # (auto) 0.02 K/uL (0-0.2); Basophils % (auto) 0.2 %; Eosinophils # (auto) 0.05 K/uL (0-0.5); Eosinophils % (auto) 0.5 %; Hemoglobin 11.1 g/dL (12.0-16.0); Immature Granulocytes # (auto) 0.03 K/uL (0.00-0.02); Immature Granulocytes % (auto) 0.3 %; Lymphocytes # (auto) 1.65 K/uL (1.2-3.4); Lymphocytes % (auto) 14.9 %; Mean Corpuscular Hemoglobin 30.2 pg (25-34); Mean Corpuscular Hgb Conc 33.6 g/dL (32-36); Mean Corpuscular Volume 89.7 fL (80-100); Mean Platelet Volume 10.2 fL (7.4-10.4); Monocytes # (auto) 1.12 K/uL (0.11-0.59); Monocytes % (auto) 10.1 %; Neutrophils # (auto) 8.18 K/uL (1.4-6.5); Platelet Count 183 K/uL (130-400); RDW Coefficient of Variation 12.8 % (11.5-14.5); RDW Standard Deviation 42.2 fL (36.4-46.3); Red Blood Count 3.68 M/uL (4.2-5.4); White Blood Count 11.05 K/uL (4.8-10.8)
[2020-04-05 06:47] LABS: BUN Creatinine Ratio 8.2 (10-20); Calcium 8.3 mg/dl (8.5-10.1); Creatinine Clr Calc Pharmacy 139.9 ml/min; Est GFR (African American) 122.3; Est GFR (Non-African American) 105.5; Potassium 3.9 mmol/L (3.5-5.1)
[2020-04-05 07:33] VITALS: BP 120/82; PULSE 84; TEMP 100.4
--- NOTE | 2020-04-05 07:49 | CT Scan Report ---
CHEST CTA for PULMONARY ARTERIES CT DOSE: 863.36 mGy.cm HISTORY: Atypical chest pain. TECHNIQUE: Multiaxial CT images of the chest were performed following the intravenous administration of contrast to evaluate the pulmonary arteries. Maximal intensity projection images were also obtaine d. A dose lowering technique was utilized adhering to the principles of ALARA. COMPARISON STUDY: Abdomen and pelvis CT 04/03/2020. FINDINGS: Limited views of the upper abdomen demonstrate a normal liver and spleen. Minimal bilateral pleural effusions are noted. No pericardial effusion. No mediastinal or hilar lymphadenopathy. Shante l esophagus. The heart is normal in size. No suspicious lytic are blastic osseous lesions. No pneumot horax. Mosaic attenuation within the lung bases consistent with mild air trapping. No focal lung cons olidations to suggest pneumonia. There is mild central peribronchial thickening. Normal caliber thora cic aorta with no evidence for dissection. No filling defects within the pulmonary arteries to sugges t pulmonary embolus. IMPRESSION: 1. No evidence for pulmonary embolus. 2. Mild peribronchial thickening. 3. Mild air trapping in the lung bases. 4. Minimal pleural effusions. ACT 112: Negative or not required by law. Electronically signed by: Samsno Rendon M.D. 04/05/2020 7:47 AM
[2020-04-05] MEDS: PANTOprazole 40 MG TAB PO SCH (07:54)
[2020-04-05] MEDS ORDERED: SULFAMETHOXAZOLE/TRIMETHOPRIM DS 800/160MG TAB PO SCH (09:50)
--- NOTE | 2020-04-05 09:50 | Discharge Summary ---
Date of Service April 05, 2020 Admission HPI Per Admitting Provider Colby Aguirre is a 24 y/o F w/ PMH significant for multi-drug resistant E. coli urinary tract infection, dyspepsia, and chronic daily headache; who presented to the ED for right sided flank pain that had progressed over the last three days. Over this time the abdominal pain has been gradually getting worse, currently described as a sharp stabbing pain. Has had some discomfort with urination, increased frequency, and urinary urgency 2 days ago, that ultimately resolved. Was admitted to [facility] in January with multi-drug resistant E. coli, which ultimately required two weeks of IV Invanz following discharge. Ultimately had i mprovement in symptoms prior to recent illness. Admission Exam Per Admitting Provider Constitutional: WD/WN, vitals as above Eyes: PERRL, conjunctivae normal, anicteric sclerae ENMT: external ear and nose normal, oropharynx normal Neck: normal visual inspection Respiratory: normal respiratory effort, lungs clear to auscultation Cardiovascular: Rate/Rhythm: regular rate and regular rhythm Heart Sounds: normal S1 and normal S2; no gallop, no murmur and no cardiac rub Vessels: no JVD Extremities: no edema Gastrointestinal (Abdomen): normal bowel sounds, soft, nontender, no hepatosplenomegaly Musculoskeletal: no cyanosis or clubbing, extremities motor strength 5/5 Neurologic: patellar DTR's 2+ bilat, sensation intact CN's II-XI intact bilaterally and moves all extremities Genitourinary: + CVA tenderness Lymphatic: no cervical or axillary lymphadenopathy Principal Diagnosis Pyelonephritis Discharge Exam Constitutional WD/WN, vitals as above Respiratory normal respiratory effort, lungs clear to auscultation Cardiovascular RRR, no murmur, no edema Gastrointestinal (Abdomen) normal bowel sounds, soft, nontender, no hepatosplenomegaly Skin no rashes, warm and dry Psychiatric A+Ox3, euthymic affect Discharge Data Allergies Allergy/AdvReac Type Severity Reaction Status Date / Time No Known Allergies Allergy Verified 04/03/20 18:48 Consultations 04/03/20 19:07 ED Decision to Admit Stat 04/04/20 07:54 Consult Urology Routine Ordered Studies 04/03/20 17:44 CT abd pelvis IV con only Stat 04/04/20 23:07 CT angio chest PE protocol Urgent Hospital Course (1) History of ESBL E. coli infection: Ms. Aguirre is a 24 year old female with a past medical history of ESBL E. coli UTI, dyspepsia, and chronic daily headaches admitted for sepsis 2/2 E. coli pyelonephritis. Sepsis in setting of recurrent E. coli UTI with 4/4 SIRS Criteria - Pt met criteria for sepsis on arrival with Tmax 39.4, HR 122, RR 30, WBC 14.36, UA with 3+ bacteria, 3+ LE. - CTAP with signs of pyelonephritis bilaterally. - pt w/hx of ESBL E.Coli UTI - last culture in January grew ESBL E.coli sensitive to ertapenem and Zosyn - this admission, UCx grew E. coli - NOT ESBL - Received IV Zosyn -> transitioned to PO Septra on d/c per sensitivities for a total abx course of 14 days - Urology consult -> will follow pt in 1-2 months outpatient for workup of causes of recurrent UTI. ?VUR - immunodeficiency work-up commenced given hx of ESBL UTI -> IgD and IgE pending -> total IgG borderline low, IgG subclasses ordered and pending. Requires outpatient f/u - patient tolerating diet well, minimal to no pain on d/c. Temp elevated to 38 celsius on d/c, expected w/pyelonephritis. Chest Pain - episode of chest pain overnight on 04/04 - patient reports "feeling like she couldn't get a breath in" - resolved in 2 hours w/out intervention - EKG, trop and CTA negative - CTA showed air trapping - discussed smoking cessation w/patient - consider OTC protonix if element of dyspepsia as well - pt has a known hx of the same Ovarian cyst - CTAP showed a right sided 6.2 x 4.5 cm ovarian cyst, not mentioned on prior imaging in January. - Pt has had Mirena IUD for 2 years following the of her son. - asymptomatic - Will need follow up outpatient with Gynecology for imaging of cyst with vagi nal ultrasound. Headache: - Pt has chronic headache, takes OTC medications with relief (2) Sepsis: (3) Chronic daily headache: (4) Dyspepsia: (5) Flank Pain: (6) Exogenous obesity: (7) Pyelonephritis due to Escherichia coli: (8) Chest pain: Total Time Total Time Spent Total Time Spent (In Minutes): see attending addendum Discharge Plan Discharge Items Patient Disposition: Home - Self-Care Reason For Visit: COMPLICATED UTI Discharge Diagnosis: Pyelonephritis Activity: Resume your previous activity Non-emergency contact: Primary Care Provider Call non-emergency contact if: you have any medication questions, your symptoms worsen and your pain is not controlled Follow-up/Referrals: Sally Hernandez MD [Primary Care Provider] - Rosalba Tse MD [Resident] - Diet: Regular Addtl Attending Provider Instructions: Bowman - you were admitted to [facility] for pyelonephritis, a complicated urinary tract infection. You were treated with IV antibiotics. Thankfully, this time your urine grew a bacteria (e.coli) that is sensitive to oral antibiotics. We will be discharging you home with a course of oral antibiotics to take. Please take one tablet twice a day, until your prescription finishes. Please take your first pill tonight. Please do not stop taking the antibiotics, even if you feel better before the antibiotics are finished. You may still experience fevers while at home, and we recommend taking Tylenol to help bring your temperature down. You can take 1g of Tylenol/acetaminophen every 8 hours as needed for pain or fever. Do not exceed 3g a day. You had an episode of chest pain while in the hospital. This, thankfully, did not appear to be related to your heart or lungs. This may be related to acid reflux, and we recommend taking over the counter protonix/pantoprazole 20mg once daily, if needed. Urology (Dr. Farnsworth) saw you while you were in the hospital, and they would like to follow up with you in clinic in 1-2 months. They will call you to set up this appointment. If you do not hear from them in the next 1-2 weeks, please call [phone] to set up an appointment in 1-2 months time. We also discovered a cyst on your right ovary. We recommend having gynecology follow up with you, as additional imaging is needed. Your family doctor can help arrange this referral. Please follow up with either Dr. Malave or Dr. Tse, who looked after you while you were admitted. We will make an appointment for you and call you with the appointment details. If you do not hear from us by April 09, please call [phone] to arrange an appointment. Their office is at [address] [place] [address], [address] (the building across from the hospital). There are a few lab studies that are still pending that they can follow up on. if you have worsening pain, nausea, vomiting, or are unable to keep food down, please seek medical attention. Pending Studies at Discharge: Yes Studies:: IgG subclasses Stand-Alone Forms: [facility], Smoking Cessation Medications and DC Order Prescriptions: Continued Mirena 20 mcg/24 hours (5 yrs) 52 mg Intrauterine Device 20 mcg intrauterine DIRECTED RF: 0 acetaminophen [Tylenol] 325 mg Tablet 650 mg PO QID PRN (Reason: Pain) RF: 0 ibuprofen 200 mg Tablet 400 mg PO Q6H PRN (Reason: Pain) RF: 0 Discharge Orders: Discharge Order (Routine); Ordered 04/05/20 Ordered By: Rosalba Tse Admission Data Admit Date/Time: 04/03/20 20:13 Attending Provider: Hannah Chapa Admit Provider: Woody Mahmood Primary Care Provider: Sally Hernandez Other Providers: Jose Farnsworth Other Interventions: Discharge Summary Assessment (RN) Last Done: 04/05/20 10:27 DC Date/Time DO NOT enter until pt leaves facility: 04/05/20 11:05 Supervising Physician Co-Signing Physician Notes I personally examined the patient and verified all lund points of history and exam, discussed case, and agree with decision making with Dr. sTe with the following additions/exceptions: Much improved, no further flank pain. Low-grade fever but does not feel poorly. No nausea or vomiting is tolerating p.o. Is anxious for discharge home Vitals reviewed Gen: AAOx3, NAD HEENT: Anicteric sclerae, EOMI CV: RRR no mgr nl S1S2 Pulm: CTAB no wcr Abd: +BS soft NT ND no masses or hernias, no CVA tenderness Ext: No edema, 2+ DP pulses Skin: No rashes, warm/dry Neuro: Full strength throughout Labs and cultures reviewed 24-year-old female with a history of recurrent UTIs including in childhood, here with E. coli UTI-sensitive to Bactrim -Received Zosyn and convert to Bactrim to complete 14-day course -Received IV fluids, pain control, antiemetics and is much improved -Appreciate urology consultation-needs outpatient follow-up given recurrent severe infections-she may have VUR given history of UTIs in childhood Also with nephrolithiasis-needs stone work-up as an outpatient also with urology Stable for discharged home Resident Activity Tracking Resident Involvement: Resident Care Provided Care Provided: Adult Hospital Medicine
--- NOTE | 2020-04-05 12:07 | Electrocardiogram Report ---
Test Reason : Blood Pressure : / mmHG Vent. Rate : 068 BPM Atrial Rate : 068 BPM P-R Int : 132 ms QRS Dur : 084 ms QT Int : 400 ms P-R-T Axes : 048 062 046 degrees QTc Int : 425 ms Sinus rhythm with marked sinus arrhythmia Otherwise normal ECG No previous ECGs available Confirmed by Fer Nuñez ([id number]) on 04/05/2020 12:06:49 PM Referred By: REFERRED SELF Confirmed By:Fer Nuñez
[2020-04-09 00:36] LABS: Immunoglobulin G4 15.1 mg/dL (4.0-86.0)
[2020-04-09 12:36] LABS: Immunoglobulin D 56 mg/L (<179); Immunoglobulin IgE 5 kU/L (<OR=114)
--- NOTE | 2020-04-17 11:40 | Billing Data ---
Date of Service April 05, 2020 I spent greater than 30 minutes coordinating the discharge Coding Level of Care Code D/C Day Management >30 mins
== END 2020-04-05 11:05 | disposition home or self-care (01) | DRG 872 ==
LOC: ED 17:25 → 2N 20:13 → SUATTDRO 20:13 → 2N 20:59